=== PATIENT | male | born 1945 | race Caucasian/White ===

== ENCOUNTER 2016-05-15 19:51 | Outpatient (CLI) | payer MEDICARE, BC ==
[~2016-05-15] VITALS: Ht 172.7 cm; Wt 85.7 kg
--- NOTE | ~2016-05-15 | HEMODYNAMI ---
PATIENT:RENAE LEMONS MEDICAL RECORD: [id number] : 45 LOC[facility] [id number] ADMISSION DATE: 05/15/16 Generatedon:05/16/201616:25 Patient name: RENAE LEMONS Patient #: [id number] SSN: [id number] : 1945 Date of study: 05/16/2016 Page: Of Hemodynamic Procedure Report Patient Data Patient Demographics Procedure consent was obtained First Name: RENAE Gender: Male Last Name: CRISTO : 1945 [facility] Initial: C Age: 71 year(s) Patient #: [id number] Race: Unknown SSN: [id number] Additional ID: [id number] Contact details [address]: [address] [place] [address] State: [place] City: [place] Zip code: [address] Past Medical History Allergies Allergen Reaction Date Comments Reported Other allergy 05/16/2016 Sulfa, Doxycyline, Steroids Admission Admission Data Admission Date: 05/15/2016 Admission Time: 19:51 Room #: D.2120 Lab Results Lab Result Date: 05/16/2016 Lab Result Time: 0:00 Biochemistry Name Units Result Min Max BUN mg/dl 16 --(---*)-- 7 18 Creatinine mg/dl 1.2 --(---*)-- 0.6 1.3 CBC Name Units Result Min Max Hemoglobin g/dl 14.7 --(-*--)-- 13.5 17.5 Procedure Procedure Types Cath Procedure Diagnostic Procedure LHC LHC w/Coronaries PCI Procedure Coronary Stent Initial Miscellaneous Procedures Procedure Description Procedure Date Procedure Date: 05/16/2016 Procedure Start Time: 16:03 Procedure End Time: 16:17 Procedure Staff Name Function Gerber Huang MD Performing Physician Laureen Ho RN Nurse Raymond Adamson RT Scrub Son Roblero RT Monitor Procedure Data Cath Procedure Fluoroscopy Diagnostic fluoroscopy Total fluoroscopy Time: 2.3 time: 2.3 min min Diagnostic fluoroscopy Total fluoroscopy dose: dose: 167.34 mGy 167.34 mGy Contrast Material Contrast Material Type Amount (ml) Isovue 300 70 Entry Location Entry Primary Successful Side Size Upsize Upsize Entry Closure Succes sful Closure Location (Fr) 1 (Fr) 2 (Fr) Remarks Device Remarks Femoral Right 5 Fr 6 Fr Vascade artery Short Closure System Diagnostic catheters Device Type Used For End Catheter Placement Cordis 5Fr Pigtail LV Angiography Catheter (MP) Cordis 5Fr JL 4.0 Left Coronary Catheter (MP) Angiography Cordis 5Fr 3DRC Catheter Right Coronary (MP) Angiography Procedure Complications No complications Procedure Medications Medication Administration Route Dosage Oxygen NC 2 l/min Lidocaine 2% added to field 20 Heparin Flush Bag added to field 2 bags (1000units/500ml NS) Versed I.V. 1 mg Fentanyl I.V. 50 mcg Versed I.V. 1 mg Fentanyl I.V. 50 mcg Heparin Bolus I.V. 4000 units Versed I.V. 1 mg Fentanyl I.V. 50 mcg Hemodynamics Rest HGB: 14.7 (g/dl) Heart Rate: 74 (bpm) Snapshots Pre Cath Intra NCS Post Cath Vital Signs Time Heart Resp SPO2 NIBP (mmHg) Rhythm Pain Sedation Rate (ipm) (%) Status Level (bpm) 15:53:10 73 18 98 No Cuff NSR 0 (11) 10(A) , No pain 15:57:28 68 18 95 158/79(114) NSR 0 (11) 10(A) , No pain 16:01:42 70 17 96 143/79(111) NSR 0 (11) 10(A) , No pain 16:05:56 75 17 95 147/77(102) NSR 0 (11) 9(A) , No pain 16:10:39 73 18 93 144/88(109) NSR 0 (11) 9(A) , No pain 16:14:49 84 19 94 143/91(112) NSR 0 (11) 9(A) , No pain 16:21:42 82 16 95 153/89(119) NSR 0 (11) 10(A) , No pain Medications Time Medication Route Dose Verified Delivered Reason Notes Effectiveness by by 15:58:23 Oxygen NC 2 Gerber Garduno used for l/min Reina Ho conventions reservationist 15:58:30 Lidocaine 2% added 20ml Gerber Gerber for local to vial Reina Huang MD anesthetic field 15:58:35 Heparin Flush added 2 Gerber Gerber used for Bag to bags Reina Huang MD procedure (1000units/500ml field NS) 16:00:35 Versed I.V. 1 mg Gerber Buffie for sedation Reina Ho RN 16:00:43 Fentanyl I.V. 50 Gerber Buffie for sedation mcg Reina Ho RN 16:05:52 Versed I.V. 1 mg Gerebr Buffie for sedation Reina Ho RN 16:05:57 Fentanyl I.V. 50 Gerber Buffie for sedation mcg Reina Ho RN 16:09:52 Versed I.V. 1 mg Gerber Buffie for sedation Reina Ho RN 16:09:57 Fentanyl I.V. 50 Gerber Buffie for sedation mcg Reina Ho RN 16:11:40 Heparin Bolus I.V. 4000 Gerber Buffie for verifi ed units Reina Ho RN anticoagulation with dr huang Procedure Log Time Note 15:32:14 Procedure type changed to Cath procedure, Diagnostic procedure, LHC, LHC w/Coronaries, PCI procedure, Coronary Stent Initial, Miscellaneous Procedures 15:35:00 Raymond Adamson RT(R) sent for patient. Start room use. 15:45:06 Time tracking: Regular hours 15:45:09 Plan of Care:Hemodynamics will remain stable., Cardiac rhythm will remain stable., Comfort level will be maintained., Respiratory function will remain adequate., Patient/ family verbilizes understanding of procedure., Procedure tolerated without complication., Recovers from procedure without complications.. 15:45:14 Patient received from PCU to CCL 3 Alert and oriented. Tansferred to table in Supine position. 15:45:16 Warm blankets applied, and aayush hugger turned on for patient comfort. 15:45:16 Correct patient and procedure confirmed by team. 15:45:17 Signed procedure consent form obtained from patient. 15:45:18 ECG and BP/O2 sat monitors applied to patient. 15:45:19 Full Disclosure recording started 15:51:51 Vital chart was started 15:53:21 Baseline sample Acquired. 15:53:25 Rhythm: sinus rhythm 15:54:49 H&P Date Dictated: 05/16/2016 New H&P dictated by physician.. 15:54:50 Pre-procedure instructions explained to patient. 15:54:51 Pre-op teaching completed and patient verbalized understanding. 15:54:52 Family in waiting room. 15:54:53 Patient NPO since Midnight. 15:55:18 Patient allergic to Other allergySulfa, Doxycyline, Steroids 15:55:21 Is the patient allergic to Iodine/contrast media? No. 15:55:22 Was the patient premedicated? No 15:55:24 Is patient on blood thinner?Yes 15:55:27 ACC The patient was administered the following blood thiners within the last 24 hours: ACCPlavix 15:55:30 Patient diabetic? No. 15:55:32 If diabetic: On Metformin? No 15:55:35 Previous problem with sedation/anesthesia? No ? 15:55:37 Snore? Yes 15:55:38 Sleep apnea? Yes 15:55:39 Deviated septum? No 15:55:40 Opens mouth fully? Yes 15:55:46 Sticks out tongue? Yes 15:55:52 Airway obstruction? No ? 15:55:55 Dentures? No ? 15:55:58 Pre procedure: right dorsailis pedis pulse 1+ Palpable, but thready & weak; easily obliterated 15:56:01 Patient pain scale 0/10 ?. 15:56:09 IV patent on arrival in left antecubital with 0.9% NaCl at KVO. 15:57:04 Lab Result : Creatinine 1.2 mg/dl 15:57:04 Lab Result : BUN 16 mg/dl 15:57:04 Lab Result : Hemoglobin 14.7 g/dl 15:57:07 Lab results completed and on chart. 15:57:11 Right groin area was prepped with chlora-prep and draped in sterile fashion 15:57:12 Alarms reviewed by R. N. 15:57:12 Sharps counted by scrub and verified by R.N. 15:57:14 Physician arrived 15:57:14 --------ALL STOP TIME OUT------ 15:57:15 Final Timeout: patient, procedure, and site verified with staff and physician. All members of the team are in agreement. 15:57:17 Right groin site verified by team. 15:57:21 Physical assessment completed. ASA score P 2 - A patient with mild systemic disease as per Gerber Huang MD. 15:57:24 Sedation plan: IV Moderate Sedation Versed, Fentanyl 15:57:57 Use device set Radial Dx 15:57:59 Acist Syringe opened to sterile field. 15:58:00 Medline Cath Pack opened to sterile field. 15:58:00 Bag Decanter opened to sterile field. 15:58:01 Terumo 6Fr Slender Glidesheath opened to sterile field. 15:58:01 St Delfino 260cm J .035 wire opened to sterile field. 15:58:02 Acist Hand Control opened to sterile field. 15:58:02 Acist Manifold opened to sterile field. 15:58:02 Tegaderm 4 x 4 opened to sterile field. 15:58:23 Oxygen 2 l/min NC was given by Laureen Ho RN; used for procedure; 15:58:30 Lidocaine 2% 20ml vial added to field was given by Gerber Huang MD; for local anesthetic; 15:58:35 Heparin Flush Bag (1000units/500ml NS) 2 bags added to field was given by Gerber Huang MD; used for procedure; 16:00:35 Versed 1 mg I.V. was given by Laureen Ho RN; for sedation; 16:00:43 Fentanyl 50 mcg I.V. was given by Laureen Ho RN; for sedation; 16:03:16 Zero performed for pressure channel P1 16:03:26 Procedure started. 16:03:32 Local anesthetic to right radial artery with Lidocaine 2% by Gerber Huang MD.INITIAL ACCESS ONLY 16:04:12 Local anesthetic to right femoral artery with Lidocaine 2% by Gerber Huang MD.ADDITIONAL ACCESS 16:04:26 A 5 Fr sheath was inserted into the Right Femoral artery 16:05:52 Versed 1 mg I.V. was given by Laureen Ho RN; for sedation; 16:05:57 Fentanyl 50 mcg I.V. was given by Laureen Ho RN; for sedation; 16:07:47 Use device set Multipack Set 16:07:48 Diagnostic Infinity 5Fr Multipack catheter opened to sterile field. 16:07:53 A Cordis 5Fr Pigtail Catheter (MP) was advanced over the wire and used for LV Angiography. 16:07:56 LV angiography performed. 16:07:58 LV gram done using HAIRSTON 16:08:03 EF : 55 % 16:08:05 Catheter removed. 16:08:11 A Cordis 5Fr JL 4.0 Catheter (MP) was advanced over the wire and used for Left Coronary Angiography. 16:08:14 Catheter removed. 16:08:19 A Cordis 5Fr 3DRC Catheter (MP) was advanced over the wire and used for Right Coronary Angiography. 16:09:33 Catheter removed. 16:09:38 Davis BDNAisper J 300cm 0.014 guide wire opened to sterile field. 16:09:39 Terumo 6Fr Tyner Sheath opened to sterile field. 16:09:46 [employer] BasixCompak Inflation Kit opened to sterile field. 16:09:52 Versed 1 mg I.V. was given by Laureen Ho RN; for sedation; 16:09:57 Fentanyl 50 mcg I.V. was given by Laureen Ho RN; for sedation; 16:10:28 Sheath upsized to a 6 Fr Short. 16:10:41 ACC PCI Site: mRCA has 75% stenosis. 16:10:46 ACC Pre-intervention ANGLE Flow is 3. 16:10:56 6 Fr 3DRC guide catheter was inserted over the wire 16:11:04 Medtronic Launcher 6Fr 3DRC guide catheter opened to sterile field. 16:11:40 Heparin Bolus 4000 units I.V. was given by Laureen Ho RN; for anticoagulation; verified with dr huang 16:11:57 Guide catheter removed. 16:12:16 6 Fr 3DRC guide catheter was inserted over the wire 16:12:19 WHISPER wire advanced. 16:13:42 Inflation Number: 1 A Medtronic Integrity 2.75 X 12 stent was prepped and advanced across the Mid RCA. The stent was deployed at 13 JANEY for 0:12 (min:sec). 16:13:46 ACC Post-intervention ANGLE Flow is 3. 16:13:47 Stent catheter was removed intact over wire. 16:13:47 Wire removed. 16:13:48 Guide catheter removed. 16:13:53 Contrast amount:Isovue 300 70ml. 16:13:59 Sheath removed intact; hemostasis achieved with Vascade Closure System to the Right Femoral artery. 16:14:01 Procedure ended.(Physican Out) 16:14:26 Fluoroscopy time 02.30 minutes. 16:14:33 Fluoroscopy dose: 167.34 mGy 16:14:33 Flurop Dose total: 167.34 16:14:35 Sharps counted by scrub and verified by R.N. 16:14:35 Insertion/operative site no bleeding no hematoma. 16:14:38 Post-op/insertion site Right Femoral artery dressed using a 4 x 4 and Tegaderm. 16:14:41 Post right femoral artery:stable 16:14:42 Post Procedure Pulses reassessed and unchanged 16:14:44 Post procedure: right dorsailis pedis pulse 1+ Palpable, but thready & weak; easily obliterated. 16:14:47 Post procedure rhythm: sinus rhythm 16:14:49 Post procedure instruction explained to patient.Patient verbalizes understanding. 16:15:16 Vascade 6/7 Fr Closure Device opened to sterile field. 16:17:03 Procedure and supply charges have been captured, reviewed, submitted and are correct. 16:17:08 Procedure Complication : No complications 16:17:11 Vital chart was stopped 16:17:11 See physician's report for complete and final results. 16:17:15 Report given to PCU. 16:17:18 Patient transfered to PCU with Bed. 16:17:20 Procedure ended. 16:17:20 Full Disclosure recording stopped 16:17:23 End room use (Document Last) 16:17:40 ACC-PCI Only Patient was given prescriptions, or instructed by Gerber Huang MD to start/continue the following medications upon discharge: Plavix Intervention Summary Intervention Notes Time ActionType Lesion and Equipment Action# Pressure Duration Attributes Used 16:13:42 Place stent Mid RCA Medtronic 1 13 00:12 Integrity 2.75 X 12 stent Device Usage Item Name Manufacture Quantity Catalog Hospital Part Current Minima l Lot# / Number Charge Number Stock Stock Serial# Code Justus Jerome 1 86639 205020 707969 859311 20 Syringe Medical Systems Inc Medline Cardinal 1 [id number] 761986 06805 871195 5 Cath Pack Health Bag Microtek 1 2001S 487972 84836 273688 5 Transave Inc. Terumo 6Fr Terumo 1 [id number] 846581 401748 335796 [address]ino St Delfino 1 673618 419788 545019 830260 30 260cm J .035 wire Acist Hand Acist 1 58192 425685 604154 040281 5 Control Medical Systems Inc Acist Acist 1 38009 595974 562443 619583 5 Y'all Medical Systems Inc Tegaderm 4 3M 1 1626W 273341 981666 314285 5 x 4 Diagnostic Cardinal 1 BQ6523 950790 72843 596767 30 Infinity Health 5Fr Multipack catheter Cordis 5Fr Cardinal 1 093987 5 Pigtail Health Catheter (MP) Cordis 5Fr Cardinal 1 995644 5 JL 4.0 Health Catheter (MP) Cordis 5Fr Cardinal 1 025110 5 3DRC Health Catheter (MP) Davis Davis 1 [id number] 823148 273595 322544 5 Whisper J Vascular 300cm 0.014 guide wire Terumo 6Fr Terumo 1 [id number] 376030 580475 792620 40 Tyner Sheath Merit Merit 1 BH8138 531665 010845 118658 15 BasixComalk Medical Inflation Kit Medtronic Medtronic 1 [id number] 399050 529695 802146 1 Launcher 6Fr 3DRC guide catheter Medtronic Medtronic 1 [id number] 591322 195408 4 [id number] Integrity 2.75 X 12 stent Vascade 6/7 Cardiva 1 [id number] 648759 337901 076399 5 Fr Closure Medical, Device Inc. Signature Audit [place] Stage Time Signature Unsigned Intra-Procedure 05/16/2016 Son Roblero 4:25:17 PM RT(R) Signatures Monitor : Son Roblero RT Signature : Date : Time : [place] [id number] [place] [address]
[2016-05-15 18:15] LABS: BASOPHILS 0.2 % (0.0-2.0); EOSINOPHILS 0.1 % (0-7); HEMATOCRIT 43.2 % (42.0-54.0); HEMOGLOBIN 14.7 g/dL (13.5-17.5); IMMATURE GRANULOCYTES 0.2 % (0-5); LYMPHOCYTES 17.7 % (15-50); MCH 29.3 pg (26.0-34.0); MCV 86.1 fL (80.0-100.0); MEAN PLATELET VOLUME 9.4 fL (7.4-10.4); MONOCYTES 9.3 % (2-11); NEUTROPHILS 72.5 % (40-80); PLATELET COUNT 215 10x3/uL (130-400); RBC 5.02 10x6/uL (4.20-6.10); RDW 13.4 % (11.5-14.5); WBC 8.7 10x3/uL (4.8-10.8)
[2016-05-15 19:02] LABS: ALBUMIN 3.6 g/dL (3.4-5.0); ALKALINE PHOSPHATASE 75 U/L (46-116); ALT (SGPT) 40 U/L (10-68); CALCIUM 9.4 mg/dL (8.5-10.1); CHLORIDE - SERUM 102 mmol/L (98-107); CREATININE - SERUM 1.2 mg/dL (0.6-1.3); GLUCOSE 118 mg/dL (74-106); POTASSIUM - SERUM 3.3 mmol/L (3.5-5.1); PROTEIN - SERUM 7.5 g/dL (6.4-8.2); UREA NITROGEN 16 mg/dL (7-18); eGFR NON AFRICAN AMERICAN 63 mL/min (90-120)
[2016-05-15 19:16] LABS: CKMB 0.6 U/L (0.0-3.6); CREATINE KINASE 61 UL (21-232)
[2016-05-15 19:20] LABS: CALC OSMOLALITY 280 mosm/kg (275-300); SODIUM 140 mmol/L (136-145); TROPONIN-I < 0.017 ng/mL (0.000-0.060)
[~2016-05-15 19:51] MED LIST: CARAFATE1 G PO; CARDIZEM60 MG PO; DEMEROL50 MG PO; FISH OIL 1,2001 CA1 PO; IMITREX50 MG PO; MAXZIDE-25 MG T1 TAB PO; MELATONIN 10 M1 EACH PO; NITROSTAT0.4 MG SL; NORCO 10/325 TA1 TA1 PO; PRILOSEC20 MG PO; ROBAXIN-750750 MG PO; TENORMIN50 MG PO; TYLENOL PM1 TAB PO
--- NOTE | 2016-05-15 21:15 | NUR ---
RECEIVED PT TO ROOM 2119 ALERT O X3. FAMILY WITH PT. ORIENTED TO ROOM AND CALL LIGHT. PT VOICES NO C/O CP OR SOB AT THIS TIME. GIVEN AND SANDWICH TRAY AND DRINK. DISCUSSED PLAN OF CARE AND NPO AFTER MN FOR POSS CATH IN AM.
[2016-05-15 21:29] VITALS: BP 132/85; Ht 172.7 cm; Wt 85.7 kg
[2016-05-15] MEDS ORDERED: CARDIZEM60 MG PO (22:22)
[2016-05-15] MEDS ORDERED: NIASPAN500 MG PO (22:23)
[2016-05-15] MEDS ORDERED: BACLOFEN10 MG PO (22:23)
[2016-05-16] VITALS: BP 132/85
--- NOTE | 2016-05-16 00:30 | NUR ---
RN SHIFT MGR AT BEDSIDE FOR VS. NEEDS ADDRESSED. CALL LIGHT IN REACH. WILL CONT TO MONITOR.
[2016-05-16 02:28] LABS: CKMB 0.7 U/L (0.0-3.6); CREATINE KINASE 57 UL (21-232)
[2016-05-16 02:36] LABS: TROPONIN-I < 0.017 ng/mL (0.000-0.060)
--- NOTE | 2016-05-16 02:58 | NUR ---
RESTING WELL WITH EYES CLOSED, NO DISTRESS NOTED. CONT TO MONITOR.
--- NOTE | 2016-05-16 07:34 | NUR ---
ASSESSMENT COMPLETED. DENIES ANY PAIN AT PRESENT TIME.TELEMERTY SHOWS SR AT 62. SL TO LEFT AC. O2 AT 2 L/M PER MC. NPO FOR POSSIBLE CATH. WILL MONITOR
[2016-05-16 07:53] VITALS: BP 149/80
[2016-05-16 08:18] LABS: CKMB 0.7 U/L (0.0-3.6); CREATINE KINASE 59 UL (21-232)
[2016-05-16 08:19] LABS: TROPONIN-I < 0.017 ng/mL (0.000-0.060)
[2016-05-16 11:44] VITALS: BP 141/83
--- NOTE | 2016-05-16 12:35 | NUR ---
HOB UP EATING LUNCH. TELEMERTY SHOWS SR. DENIES ANY NEEDS. SR UP WITH CALL LIGHT IN REACH .
[2016-05-16 15:24] VITALS: BP 145/82
--- NOTE | 2016-05-16 15:44 | NUR ---
TO ETCHER APPRENTICE PER BED
--- NOTE | 2016-05-16 16:15 | NUR ---
BACK FROM PORT PATROL OFFICER. RIGHT GROIN SOFT WITH DRSG DRY AND INTACT. V/S STABLE. PPP. TELEMERTY SHOWS SR. FAMILY AT BEDSIDE. WILL MONITOR
[2016-05-16] MEDS ORDERED: PLAVIX75 MG PO (16:48)
[2016-05-16] MEDS ORDERED: ASPIRIN81 MG PO (16:50)
--- NOTE | 2016-05-16 18:22 | NUR ---
LYING QUIETLY. RIGHT GROIN SOFT WITH DRSG DRY AND INTACT. V/S STABLE TELEMERTY SHOWS SR
--- NOTE | 2016-05-16 19:20 | NUR ---
LYING IN BED RESTING WELL WITH AT BEDSIDE. RIGHT GROIN STABLE. VSS. DISCUSSED DISCHARGE INSTRUCTIONS. PT AND VERBALIZE UNDERSTANDING. SCRIPT GIVEN FOR PLAVIX WRITTEN BY DR BLANCO.
--- NOTE | 2016-05-16 20:00 | NUR ---
IVSL REMOVED FROM LEFT FA, CATH TIP INTACT. TELE REMOVED AND RETURNED TO SALES AGENT [employer]. RIGHT GROIN STABLE.
--- NOTE | 2016-05-16 20:30 | NUR ---
TAKEN DOWNSTAIRS VIA WC.
--- NOTE | 2016-05-19 08:47 | OP ---
PATIENT NAME: RENAE LEMONS MEDICAL RECORD: [id number] :45 LOCATION:D.M2 D.0 ADMISSION DATE:05/15/16 SURGEON: CAIN BLANCO MD DATE OF OPERATION: PROCEDURES: 1. PTCA stent to RCA. 2. Left heart catheterization. 3. Selective coronary angiography. 4. Left ventriculogram. INDICATION: Unstable angina. PROCEDURE IN DETAIL: After informed consent was obtained and after detailed explanation of risks, benefits as well as alternative therapies, the patient elected to proceed with angiogram and angioplasty. The right femoral area was prepped and draped in normal sterile fashion. Right femoral artery was cannulated via modified Seldinger technique with placement of 6-Maltese sheath. All catheters exchanged through this sheath. At the end of the case, all catheters were removed, sheaths were also removed. Hemostasis was obtained via best VASCADE and direct compression. The patient tolerated procedure well with no complication, returned back to the room in stable hemodynamic condition. FINDINGS: The left ventriculogram was performed in the standard 30-degree HAIRSTON view reveals good cardiac wall motion throughout all segments. Overall ejection fraction estimated at 60%. SELECTIVE CORONARY ANGIOGRAPHY: 1. Left main showed no significant angiographic disease. 2. Left anterior descending has moderate irregularities, but no flow-limiting stenosis. 3. The left circumflex has moderate irregularities, but no flow-limiting stenosis. 4. Right coronary has 70% to 75% stenosis in the mid vessel. PTCA STENT OF THE RIGHT CORONARY: The stent used was a 2.75 x 12 mm Integrity. Result was 0% residual stenosis. No angiographic evidence of dissection or thrombus with jainism of ANGLE-3 flow. IMPRESSION: Successful percutaneous transluminal coronary angioplasty stent of the right coronary artery going from 70% to 75% initial stenosis to 0% residual. TRANSINT:[id number] Voice Confirmation ID: [id number] DOCUMENT ID: [id number] CAIN BLANCO MD at 0847 CC: [id number] DICTATION DATE: 05/16/16 1619 PARKING METER COLLECTOR: 05/17/16 0018 DIS IN 05/16/16 [facility] [address] [place] [id number]
--- NOTE | 2016-05-19 08:47 | HP ---
PATIENT: RENAE PALACIOS MEDICAL RECORD: [id number] ACCOUNT: [id number] LOCATION:[address] : 45 ADMISSION DATE: 05/15/16 HISTORY AND PHYSICAL EXAMINATION DIAGNOSES: 1. Unstable angina. 2. Abnormal nuclear stress test. 3. Hypertension. 4. Hyperlipidemia. HISTORY OF PRESENT ILLNESS: Mr. Palacois has been having anginal symptomatology. He underwent stress testing in our office revealing significant ischemia. He was set for cardiac catheterization yesterday; however, the chest pain worsened. His troponin is negative. His EKG is with nonspecific ST-T abnormalities, but he continues to have the anginal chest discomfort. PHYSICAL EXAMINATION: GENERAL APPEARANCE: Well-nourished, well-developed, appears stated age. Level of distress, comfortable. PSYCHIATRIC: Mental status, alert, normal affect. Orientation, oriented to time, place and person. EYES: Lids and conjunctiva, noninjected. No discharge, no pallor. ENT: Lips, teeth, gums, normal dentition. Oropharynx, no cyanosis, no pallor. NECK: Carotid arteries, bilateral normal upstroke, no bruits, no thrills. JUGULAR VEINS: No jugular venous pressure or distention. CERVICAL LYMPH NODES: Nontender, nonenlarged. THYROID: Not enlarged. Nontender. No nodules. LUNGS: Respiratory effort, unlabored. CHEST: Normal curvature. No thoracic deformity. No chest wall tenderness. Percussion, resonant. Auscultation, clear. No wheezes, no rales, no rhonchi. CARDIOVASCULAR: Precordial exam, nondisplaced. No heaves or pericardial thrills. Rate and rhythm, regular. Heart sounds, normal S1, normal S2. No S3, no gallop, no rub. Systolic murmur, not heard. Diastolic murmur, not heard. EXTREMITIES: No cyanosis, no edema. Peripheral pulses, full and equal in all extremities, except as noted. No bruits appreciated. ABDOMEN: Soft, nondistended. Normal aorta. No bruit. Nontender. No masses. Liver, nontender, no hepatomegaly. Spleen, nontender, no splenomegaly. MUSCULOSKELETAL: No joint tenderness. No joint swelling. No erythema. NEUROLOGICAL: Normal gait, normal strength, normal tone. SKIN: Warm and dry. REVIEW OF SYSTEMS: The patient reports easy bruising but reports no swollen glands. The patient reports no fever, no night sweats, no significant weight gain, no significant weight loss. No significant exercise tolerance. The patient reports no dry eyes, no irritation, no vision change. Patient reports no difficulty hearing and no ear pain. Patient reports no frequent nose bleeds or nose and sinus problems. Patient reports on arm pain on exertion. No shortness of breath while lying down. No history of heart murmur. Patient reports no cough, no wheezing or coughing up blood. Patient reports no abdominal pain, no vomiting. Normal appetite. No diarrhea and not vomiting blood. No nausea and no constipation. Patient reports no incontinence. No difficulty urinating. No hematuria. No increased frequency. Patient reports no muscle aches. No weakness, no arthralgias, no back pain. No swelling of the extremities. Patient reports no abnormal mole, no jaundice, no rashes. Reports HISTORY AND PHYSICAL [id number] RENAE PALACIOS no loss of consciousness. No weakness and no numbness. No seizures, dizziness, or headaches. The patient reports no depression, no sleep disturbance, feeling safe in a relationship and no alcohol abuse. Patient reports on fatigue. Reports no runny nose or sinus pressure. No itching, no hives, and no frequent sneezing. OVERALL IMPRESSION: Unstable angina, escalating fashion with abnormal nuclear stress test, most likely has hemodynamically significant coronary artery disease. We will proceed with coronary angiography. Further care depends upon findings of the angiography. TRANSINT:[id number] Voice Confirmation ID: [id number] DOCUMENT ID: [id number] CAIN BLANCO MD at 0847 CC: [id number] DICTATION DATE: 05/16/16 1113 CNC MILL SET UP OPERATOR: 05/16/16 1148 DIS IN 05/16/16 [facility] [address] [place] [address]
--- NOTE | 2016-05-19 08:47 | DS ---
PATIENT:RENAE LEMONS :45 MEDICAL RECORD: [id number] DISCHARGE SUMMARY ADMISSION DATE: 05/15/16 DISCHARGE DATE: 05/16/16 DIAGNOSES: 1. Unstable angina. 2. Coronary artery disease. 3. Percutaneous transluminal coronary angioplasty stent right coronary artery this admission. HOSPITAL COURSE: This is a gentleman who presents with unstable anginal symptomatology, found to have significant disease of the RCA, underwent successful PTCA stent of the RCA, had an uneventful postop course. He was discharged home with the addition of aspirin and Plavix to his medical regimen. He will follow up with [facility] in 1 month. TRANSINT:[id number] Voice Confirmation ID: [id number] DOCUMENT ID: [id number] CAIN BLANCO MD at 0847 CC: [id number] DICTATION DATE: 05/16/16 1617 FOREMAN SHIPPING DEPARTMENT: 05/17/16 0144 DIS IN 05/16/16 [address] [place] [address]
== END 2016-05-16 20:30 | disposition home or self-care (01) ==
LOC: OBSVTIME → D.ER 19:51 → D.M2 19:51 → D.CATH 19:51 → EDSTATUS 05-16 12:45 → D.M2 05-16 20:30 → D.CATH 05-16 20:30 → D.M2 05-16 20:30
PROVIDERS: Emergency Medicine; Emergency Medicine Emergency Medical Services
DX: I25.110 Atherosclerotic heart disease of native coronary artery with unstable angina pectoris (principal); E78.5 Hyperlipidemia, unspecified; I10 Essential (primary) hypertension

== ENCOUNTER 2016-08-15 10:48 | Outpatient (CLI) | payer MEDICARE, BC ==
[~2016-08-15] VITALS: Ht 172.7 cm; Wt 86.4 kg
--- NOTE | ~2016-08-15 | OP ---
PATIENT NAME: RENAE LEMONS MEDICAL RECORD: [id number] :45 LOCATION:D.M2 D.2119 ADMISSION DATE: SURGEON: CY RIVERA MD DATE OF OPERATION: 08/15/2016 PREOPERATIVE DIAGNOSES: 1. Sick sinus syndrome. 2. Bradycardia. 3. Hypertension. POSTOPERATIVE DIAGNOSES: 1. Sick sinus syndrome. 2. Bradycardia. 3. Hypertension. PROCEDURE: 1. Left subclavian vein dual lumen pacemaker placement. 2. Fluoroscopic interpretation. SURGEON: Cy Rivera MD. CO-SURGEON: Vasquez Mcfarlane MD. REPORT OF OPERATION: The patient's left chest was prepped and draped in sterile fashion. A 30 mL of 1% lidocaine with epinephrine was infused into the surrounding tissues. A skin incision was made over the left lateral superior chest and a subcutaneous pouch was made overlying the pectoral fascia. A needle was used to cannulate the left subclavian vein. The guidewire was advanced with ease. This was performed with 2 separate times. Fluoro was used to note that the wires were in good position in the venous system. At this point, the dilator trocar device was replaced over the wire and the wires and dilators were removed. The leads were advanced through the trocars and at this point, Dr. Mcfarlane came in and positioned the leads appropriately in the atrium and the ventricle. Once there are noted to be in good position and functioning appropriately, then they were attached to the pacemaker generator. The leads were then sutured into place with 0 Ti-Cron and the generator was positioned in the subcutaneous pouch and sutured to the pectoral fascia using interrupted 0 Ti-Cron. The subcutaneous tissues were irrigated out with antibiotic solution. The subcutaneous tissues were then reapproximated with interrupted 3-0 Vicryl. The skin was then closed with running subcutaneous 5-0 Monocryl and dressed appropriately. COMPLICATIONS: None. CONDITION: Stable. ANESTHESIA: Local MAC. BLOOD LOSS: Minimal. TRANSINT:[id number] Voice Confirmation ID: [id number] DOCUMENT ID: [id number] OPERATIVE REPORT [id number] RENAE LEMONS CY RIVERA MD CC: [id number] DICTATION DATE: 08/15/16 141 SUPPRESSION CREW LEADER: 08/15/16 2350 [address] [facility] [address] [place] [address]
--- NOTE | ~2016-08-15 | HEMODYNAMI ---
PATIENT:RENAE LEMONS MEDICAL RECORD: [id number] : 45 LOCATION:DDonnaCAT ADMISSION DATE: 08/15/16 Generatedon:08/15/201614:05 Patient name: RENAE LEMONS Patient #: [id number] SSN: [id number] : 1945 Date of study: 08/15/2016 Page: Of Hemodynamic Procedure Report Patient Data Patient Demographics Procedure consent was obtained First Name: RENAE Gender: Male Last Name: CRISTO : 1945 [facility] Initial: C Age: 71 year(s) Patient #: [id number] Race: Unknown SSN: [id number] Additional ID: [id number] Contact details [address]: [address] [place] [address] State: [place] City: [place] Zip code: [address] Past Medical History Allergies Allergen Reaction Date Comments Reported Other allergy 05/16/2016 Sulfa, Doxycyline, Steroids Other allergy 08/15/2016 doxycycline, medrol Admission Admission Data Admission Date: 08/15/2016 Admission Time: 10:48 Lab Results Lab Result Date: 08/15/2016 Lab Result Time: 0:00 Biochemistry Name Units Result Min Max BUN mg/dl 18 --(---*)-- 7 18 Creatinine mg/dl 1 --(--*-)-- 0.6 1.3 CBC Name Units Result Min Max Hemoglobin g/dl 14.2 --(*---)-- 13.5 17.5 Coagulation Name Units Result Min Max INR units 0.97 --(-*--)-- 0.85 1.17 PT sec 12.7 --(-*--)-- 11.6 15 Procedure Procedure Types Cath Procedure Diagnostic Procedure PPM/ICD PPM Dual Implant Miscellaneous Procedures Moderate Sedation up to 45 minutes Procedure Description Procedure Date Procedure Date: 08/15/2016 Procedure Start Time: 13:26 Procedure End Time: 14:04 Procedure Staff Name Function Vasquez Mcfarlane MD Performing Physician Cody Masters MD Performing Physician Raymond Adamson RT Scrub Shana Salcedo RN Nurse Son Roblero RT Monitor Procedure Data Cath Procedure Fluoroscopy Diagnostic fluoroscopy Total fluoroscopy Time: 1.6 time: 1.6 min min Diagnostic fluoroscopy Total fluoroscopy dose: dose: 45.75 mGy 45.75 mGy Procedure Complications No complications Procedure Medications Medication Administration Route Dosage Bupivacaine 0.5% 20 ml Lidocaine 1% with added to field 20 ml Epi Ancef Irrigation added to field 1 g (1gm/500ml NS) Ancef (1Gm/50ml NS) I.V.P.B 1 g Versed I.V. 1 mg Fentanyl I.V. 50 mcg Fentanyl I.V. 25 mcg Versed I.V. 0.5 mg Fentanyl I.V. 25 mcg Versed I.V. 0.5 mg Hemodynamics Rest HGB: 14.2 (g/dl) Heart Rate: 42 (bpm) Snapshots Pre Cath Intra NCS Post Cath Vital Signs Time Heart Resp SPO2 NIBP (mmHg) Rhythm Pain Sedation Rate (ipm) (%) Status Level (bpm) 12:56:51 41 20 99 148/70(110) SB 0 (11) 10(A) , No pain 13:01:17 41 20 99 154/73(99) SB 0 (11) 10(A) , No pain 13:05:42 43 19 99 155/69(109) SB 0 (11) 10(A) , No pain 13:10:12 45 16 98 149/70(110) SB 0 (11) 10(A) , No pain 13:14:40 44 14 99 156/71(107) SB 0 (11) 10(A) , No pain 13:19:02 45 14 96 157/73(111) SB 0 (11) 10(A) , No pain 13:23:12 46 16 97 125/70(95) SB 0 (11) 10(A) , No pain 13:27:31 42 16 98 141/69(105) SB 0 (11) 10(A) , No pain 13:32:29 54 15 98 Measuring SB 0 (11) 10(A) , No pain 13:32:40 53 16 97 144/78(97) SB 0 (11) 10(A) , No pain 13:37:10 52 14 97 163/52(98) SB 0 (11) 10(A) , No pain 13:41:34 48 16 96 134/75(96) SB 0 (11) 10(A) , No pain 13:45:46 45 19 96 123/71(101) SB 0 (11) 10(A) , No pain 13:50:46 44 17 95 Measuring SB 0 (11) 10(A) , No pain 13:50:58 45 15 96 131/71(114) SB 0 (11) 10(A) , No pain 13:55:16 58 16 96 142/75(107) SB 0 (11) 10(A) , No pain 14:00:15 60 16 95 Measuring SB 0 (11) 10(A) , No pain 14:01:35 59 16 96 106/71(88) SB 0 (11) 10(A) , No pain Medications Time Medication Route Dose Verified Delivered Reason Notes Effectiv eness by by 13:03:51 Bupivacaine ADDED 20 ml Cheondoism Cheondoism used for 0.5% TO Guerrero Masters MD procedure FIELD 13:04:00 Lidocaine added 20 ml Cheondoism Cheondoism used for 1% with Epi to Guerrero Masters MD procedure field 13:04:14 Ancef added 1 g Cheondoism Cheondoism used for Irrigation to Guerrero Masters MD procedure (1gm/500ml field NS) 13:15:46 Ancef I.V.P.B 1 g Cheondoism Shana Per (1Gm/50ml Guerrero Salcedo RN physician NS) 13:25:30 Versed I.V. 1 mg [address]ana for [facility] Liam Salcedo RN sedation 13:26:03 Fentanyl I.V. 50 Vasquez Shana for mcg MaeveLiam Salcedo RN sedation 13:30:03 Fentanyl I.V. 25 Vasquez Shana for mcg [facility] Liam Salcedo RN sedation 13:32:09 Versed I.V. 0.5 Vasquez Shana for mg MaeveLiam Salcedo RN sedation 13:41:06 Fentanyl I.V. 25 Vasquez Shana for mcg [facility] Liam Salcedo RN sedation 13:41:10 Versed I.V. 0.5 Vasquez Shana for mg [facility]. Liam Salcedo RN sedation Procedure Log Time Note 12:25:57 Son Roblero RT(R) sent for patient. Start room use. 12:26:23 Time tracking: Regular hours 12:26:27 Plan of Care:Hemodynamics will remain stable., Cardiac rhythm will remain stable., Comfort level will be maintained., Respiratory function will remain adequate., Patient/ family verbilizes understanding of procedure., Procedure tolerated without complication., Recovers from procedure without complications.. 12:45:36 Patient received from Pre/Post Procedure Room to CCL 3 Alert and oriented. Tansferred to table in Supine position. 12:45:38 Warm blankets applied, and aayush hugger turned on for patient comfort. 12:45:38 Correct patient and procedure confirmed by team. 12:45:39 Signed procedure consent form obtained from patient. 12:45:40 ECG and BP/O2 sat monitors applied to patient. 12:55:37 Vital chart was started 13:00:54 Baseline sample Acquired. 13:00:58 Rhythm: sinus bradycardia 13:00:59 Full Disclosure recording started 13:01:09 H&P Date Dictated: 08/08/2016 Within 30 days and on chart., H&P Addendum completed by physician on day of procedure. (MUST COMPLETE FOR ALL OUTPATIENTS). 13:01:10 Pre-procedure instructions explained to patient. 13:01:11 Pre-op teaching completed and patient verbalized understanding. 13:01:13 Family in patients room. 13:01:14 Patient NPO since Midnight. 13:01:38 Patient allergic to Other allergydoxycycline, medrol 13:01:40 Is the patient allergic to Iodine/contrast media? No. 13:01:45 Is patient on blood thinner?No 13:02:02 Patient diabetic? No. 13:02:04 ----Pre-sedation anethsthesia assessment.---- 13:02:06 Previous problem with sedation/anesthesia? No ? 13:02:07 Snore? Yes 13:02:08 Sleep apnea? Yes 13:02:09 Deviated septum? No 13:02:10 Opens mouth fully? Yes 13:02:11 Sticks out tongue? Yes 13:02:13 Airway obstruction? No ? 13:02:15 Dentures? No ? 13:02:20 Patient pain scale 0/10 ?. 13:02:34 IV patent on arrival in left antecubital with 0.9% NaCl at 10ml/hr. 13:03:51 Bupivacaine 0.5% 20 ml ADDED TO FIELD was administered by Cody Masters MD; used for procedure; 13:04:00 Lidocaine 1% with Epi 20 ml added to field was administered by Cody Masters MD; used for procedure; 13:04:14 Ancef Irrigation (1gm/500ml NS) 1 g added to field was administered by Cody Masters MD; used for procedure; 13:05:21 Lab results completed and on chart. 13::55 Lab Result : BUN 18 mg/dl 13::55 Lab Result : Creatinine 1 mg/dl 13::55 Lab Result : Hemoglobin 14.2 g/dl 13:: Lab Result : PT 12.7 sec 13:: Lab Result : INR 0.97 units 13:06:02 Left chest area was prepped with chlora-prep and draped in sterile fashion 13:06:02 Alarms reviewed by R. N. 13:06:02 Sharps counted by scrub and verified by R.N. 13:07:17 Medtronic Adapta PPM Dual Generator opened to sterile field. 13:07:25 Medtronic 4074-52 PPM Lead opened to sterile field. 13:07:34 Medtronic 4574-45 PPM Lead opened to sterile field. 13:12:34 Use device set Pacemaker Set 13:12:35 Mepilex Dressing opened to sterile field. 13:12:35 2.0 Ticron Multipack opened to sterile field. 13:12:35 3.0 Vicryl Multipack [id number] opened to sterile field. 13:12:44 5.0 Monocryl PS2 [id number] opened to sterile field. 13:12:46 Immobilizer Large opened to sterile field. 13:15:40 Physician paged 13:15:46 Ancef (1Gm/50ml NS) 1 g I.V.P.B was administered by Shana Salcedo RN; Per physician; 13:25:26 --------ALL STOP TIME OUT------ 13:25:27 Final Timeout: patient, procedure, and site verified with staff and physician. All members of the team are in agreement. 13:25:29 Left chest site verified by team. 13:25:30 Versed 1 mg I.V. was administered by Shana Salcedo RN; for sedation; 13:25:35 Physical assessment completed. ASA score P 2 - A patient with mild systemic disease as per Cody Masters MD. 13:25:39 Sedation plan: IV Moderate Sedation Versed, Fentanyl 13:25:58 Procedure started. 13:26:03 Fentanyl 50 mcg I.V. was administered by Shana Salcedo RN; for sedation; 13:26:14 Local anesthetic to Chest area with Lidocaine 1% w/epi by Cody Masters MD.INITIAL ACCESS ONLY 13:26:24 Medtronic unit support representative LUNA LLOYD present for procedure. 13:26:50 Pre sharps counted by scrub and verified by RN: Sutures: 14 Sponges: 5 Stick needles: 2 Skin needles: 2 Blade: 1 Cautery: 1 13:26:53 Grounding pad site Left thigh. 13:26:55 Grounding pad site free from injury. 13:27:01 Lidocaine 1% w/epi to left subclavicular area by Cody Masters MD. 13:27:03 Incision made to left subclavicular area. 13:27:05 Generator pocket made/opened. 13:30:03 Fentanyl 25 mcg I.V. was administered by Shana Salcedo RN; for sedation; 13:31:44 Procedure type changed to Cath procedure, Diagnostic procedure, PPM/ICD, PPM Dual Implant, Miscellaneous Procedures, Moderate Sedation up to 45 minutes 13:32:04 Left subclavian vein accessed with 7Fr Safe Sheath. 13:32:09 Versed 0.5 mg I.V. was administered by Shana Salcedo RN; for sedation; 13:34:38 Right subclavian vein accessed with 7Fr Safe Sheath. 13:36:02 Ventricular lead inserted and advanced. 13:36:56 Atrial lead inserted and advanced. 13:41:06 Fentanyl 25 mcg I.V. was administered by Shana Salcedo RN; for sedation; 13:41:10 Versed 0.5 mg I.V. was administered by Shana Salcedo RN; for sedation; 13:46:29 Ventricular lead positioned. 13:46:34 Ventricular lead tested. 13:46:36 Atrial lead positioned. 13:46:40 Atrial lead tested. 13:46:41 Peel-a-way sheath was split and removed. 13:47:05 Ventricular lead attachment was completed with 2-0 vicryl. 13:47:15 Atrial lead attachment was completed with 2-0 vicryl. 13:47:45 Device pocket was irrigated with Ancef. 13:47:57 PPM Dual was attached to lead(s) and inserted into pocket. 13:48:10 PPM Dual was inserted subcutaneously to left chest. 13:48:15 Generator was sutured in place with 2-0 vicryl. 13:54:25 Generator was sutured in place with 3-0 vicryl. 13:54:33 Skin closure was completed with 5-0 monocryl. 13:55:19 Parameters-- Generator: Mode: DUEL. Lower Rate: 60bpm. Upper Rate: 130bpm. 13:56:25 Parameters--Ventricular P/R Wave: 19.5mV. Current: 0.1mA; Threshold: 0.2V; Impedence: 1173OHMS. 13:57:19 Parameters--Atrial P/R Wave: 4.5mV. Current: 0.1mA; Threshold: 0.3V; Impedence: 789OHMS. 14:00:30 Lt Chest incision was dressed with Mepilex dressing. 14:00:33 Procedure ended.(Physican Out) 14:00:40 Fluoroscopy time 01.60 minutes. 14:00:49 Fluoroscopy dose: 45.75 mGy 14:00:49 Flurop Dose total: 45.75 14:01:15 Sharps counted by scrub and verified by R.N. 14:01:23 Post-op/insertion site Left Chest area dressed using a Mepilex dressing. 14:01:33 Post Chest area:stable 14:01:34 Post Procedure Pulses reassessed and unchanged 14:01:42 Post procedure rhythm: sinus rhythm 14:01:44 Post procedure instruction explained to patient.Patient verbalizes understanding. 14:03:49 Procedure and supply charges have been captured, reviewed, submitted and are correct. 14:04:43 Procedure Complication : No complications 14:04:51 Vital chart was stopped 14:04:52 See physician's report for complete and final results. 14:04:54 Report given to PCU. 14:04:57 Patient transfered to PCU with Bed. 14:04:59 Procedure ended. 14:04:59 Full Disclosure recording stopped 14:05:02 End room use (Document Last) Device Usage Item Name Manufacture Quantity Catalog Hospital Part Current Minimal Lot# / Number Charge Number Stock Stock Serial# Code Medtronic Medtronic 1 [id number] EXP:11-20-17 Adapta PPM SN: Dual [id number] Generator Medtronic Medtronic 1 4074-52 [id number] 054832 5 4074-52 PPM Lead Medtronic Medtronic 1 4574-45 [id number] 995340 5 4574-45 PPM Lead Mepilex Cardinal 1 399255 320228 069142 [id number] 5 Dressing Health 2.0 Ticron Ethicon 9 [id number] 363959 24643 340476 5 Multipack 3.0 Vicryl Ethicon 1 [id number] 980844 538572 5 Multipack [id number] 5.0 Ethicon 1 Y495G 600135 808469 676027 5 Monocryl PS2 Y495G Immobilizer Cardinal 1 [id number] 281183 [id number] 400984 5 Large Health Signature Audit [place] Stage Time Signature Unsigned Intra-Procedure 08/15/2016 Son Roblero 2:05:19 PM RT(R) Signatures Monitor : Son Roblero RT Signature : Date : Time : [address] [address]
[~2016-08-15 10:48] MED LIST changes: +ASPIRIN81 MG PO; +BACLOFEN10 MG PO; +NIASPAN500 MG PO; +PLAVIX75 MG PO
[2016-08-15 12:08] LABS: HEMOGLOBIN 14.2 g/dL (13.5-17.5); MCH 29.6 pg (26.0-34.0); MCHC 33.8 g/dL (31.0-37.0); MCV 87.5 fL (80.0-100.0); MEAN PLATELET VOLUME 9.2 fL (7.4-10.4); RBC 4.8 10x6/uL (4.20-6.10); RDW 13.2 % (11.5-14.5); WBC 7.3 10x3/uL (4.8-10.8)
[2016-08-15] MEDS ORDERED: CARAFATE1 G PO (12:19)
[2016-08-15] MEDS ORDERED: BETAPACE 80 MG80 MG PO (12:19)
[2016-08-15 12:26] LABS: APTT 23.4 SECONDS (22.8-39.4); INR 0.97 (0.85-1.17); PROTIME 12.7 SECONDS (11.6-15.0)
[2016-08-15 12:27] VITALS: BP 122/71; BMI 28.9
[2016-08-15 12:39] LABS: CALC OSMOLALITY 284 mosm/kg (275-300); CALCIUM 9.2 mg/dL (8.5-10.1); CARBON DIOXIDE 25.2 mmol/L (21.0-32.0); CHLORIDE - SERUM 104 mmol/L (98-107); GLUCOSE 105 mg/dL (74-106); POTASSIUM - SERUM 3.8 mmol/L (3.5-5.1); SODIUM 142 mmol/L (136-145); UREA NITROGEN 18 mg/dL (7-18); eGFR NON AFRICAN AMERICAN 78 mL/min (90-120)
[2016-08-15 14:37] VITALS: BP 119/82; Ht 172.7 cm; Wt 86.4 kg
--- NOTE | 2016-08-15 14:37 | NUR ---
TRANSFERED FROM CEMENT CRUSHER OPERATOR. VS WNL. LEFT CHEST DRSG CLEAN AND DRY. LEFT ARM IN SLING. WILL CONT. PLAN OF CARE.
[2016-08-15 15:53] VITALS: BP 140/74
[2016-08-15 21:07] VITALS: BP 132/83
[2016-08-16 01:38] VITALS: BP 110/71
[2016-08-16 05:32] VITALS: BP 113/72
[2016-08-16 08:00] VITALS: BP 137/78
--- NOTE | 2016-08-16 09:58 | NUR ---
IV AND TELEMETRY DCD. DC PLANS GIVEN. UNDERSTANDING VOICED. ESCORTED TO CAR BY W/C.
--- NOTE | 2016-08-17 12:52 | OP ---
PATIENT NAME: RENAE PALACIOS MEDICAL RECORD: [id number] :45 LOCATION:D.CAT ADMISSION DATE: SURGEON: ELENA MATTHEW MD DATE OF OPERATION: 08/15/2016 PROCEDURE: Lead portion of permanent pacemaker placement. INDICATION: Sick sinus syndrome, yann escape rhythms. SURGEON: Cody Masters MD. DESCRIPTION OF PROCEDURE: After left subclavian was cannulated via Seldinger technique via Dr. Masters, first under fluoroscopic guidance, I the placed RV lead in RV apex without difficulty. After adequate thresholds and R waves were obtained, under fluoroscopic guidance, again, I placed the right atrial lead in the right atrial appendage without difficulty. After adequate P waves and thresholds were again obtained, the leads were attached to appropriate poles of the generator. Pocket was closed via Dr. Masters. IMPRESSION: Successful lead portion of permanent pacemaker placement on Renae Palacios. COMPLICATIONS: None. ESTIMATED BLOOD LOSS: Minimal. DISPOSITION: To the floor, stable. TRANSINT:[id number] Voice Confirmation ID: [id number] DOCUMENT ID: [id number] ELENA MATTHEW MD at 1252 CC: [id number] DICTATION DATE: 08/15/16 1359 TYPESETTER APPRENTICE: 08/15/16 2345 [facility] CLI 08/16/16 [id number] [place] [address]
== END 2016-08-16 09:59 | disposition home or self-care (01) ==
LOC: D.CATH 10:48 → D.M2 14:22 → D.CATH 08-16 09:59
PROVIDERS: Internal Medicine Interventional Cardiology
DX: I49.5 Sick sinus syndrome (principal); I10 Essential (primary) hypertension

== ENCOUNTER → 2017-07-06 12:19 | Outpatient (CLI) | payer MEDICARE, OTHER ==
[2016-08-15 14:37] VITALS: BMI 28.9
[~2017-07-06 12:19] MED LIST changes: +BETAPACE 80 MG80 MG PO
== END | disposition home or self-care (01) ==
LOC: D.LABREF 12:19
DX: B95.8 Unspecified staphylococcus as the cause of diseases classified elsewhere (principal)

== ENCOUNTER 2017-09-17 08:11 | Outpatient (CLI) | payer MEDICARE, OTHER ==
[~2017-09-17] VITALS: Ht 172.7 cm; Wt 79.5 kg
--- NOTE | ~2017-09-17 | HEMODYNAMI ---
PATIENT:RENAE LEMONS MEDICAL RECORD: [id number] : 45 LOCATION:D[facility] ADMISSION DATE: 09/17/17 Generatedon:09/17/201711:10 Patient name: RENAE LEMONS Patient #: [id number] SSN: [id number] : 1945 Date of study: 09/17/2017 Page: Of Hemodynamic Procedure Report Patient Data Patient Demographics Procedure consent was obtained First Name: RENAE Gender: Male Last Name: CRISTO : 1945 [facility] Initial: C Age: 72 year(s) Patient #: [id number] Race: Unknown SSN: [id number] Additional ID: [id number] Contact details Address: [address] [place] [address] State: [place] City: [place] Zip code: [address] Past Medical History Allergies Allergen Reaction Date Comments Reported Other allergy 05/16/2016 Sulfa, Doxycyline, Steroids Other allergy 08/15/2016 doxycycline, medrol Other allergy 09/17/2017 doxycycline,medrol Admission Admission Data Admission Date: 09/17/2017 Admission Time: 8:11 Admit Source: Other Lab Results Lab Result Date: 09/17/2017 Lab Result Time: 0:00 Biochemistry Name Units Result Min Max BUN mg/dl 14 --(--*-)-- 7 18 Creatinine mg/dl 0.5 -*(----)-- 0.6 1.3 CBC Name Units Result Min Max Hematocrit % 43.1 --(*---)-- 42 54 Hemoglobin g/dl 13.9 --(*---)-- 13.5 17.5 Procedure Procedure Types Cath Procedure Diagnostic Procedure [facility] w/Coronaries PCI Procedure Coronary Stent Coronary Stent Initial Procedure Description Procedure Date Procedure Date: 09/17/2017 Procedure Start Time: 10:47 Procedure End Time: 11:09 Procedure Staff Name Function Gerber Huang MD Performing Physician Tez Garcia RT Scrub Patrice Menon RN Nurse Ronan Luna RT Monitor Procedure Data Cath Procedure Fluoroscopy Diagnostic fluoroscopy Total fluoroscopy Time: 2.2 time: 2.2 min min Diagnostic fluoroscopy Total fluoroscopy dose: 542 dose: 542 mGy mGy Contrast Material Contrast Material Type Amount (ml) Isovue 300 88 Entry Location Entry Primary Successful Side Size Upsize Upsize Entry Closure Succes sful Closure Location (Fr) 1 (Fr) 2 (Fr) Remarks Device Remarks Femoral Right 5 Fr 6 Fr Exoseal artery Short Estimated blood loss: 10 ml Diagnostic catheters Device Type Used For End Catheter Placement MULTIPACK Pigtail 5 Fr Procedure catheter MULTIPACK JL 4.0 5Fr Procedure catheter MULTIPACK 3DRC 5Fr Procedure catheter Procedure Medications Medication Administration Route Dosage 0.9% NaCl I.V. 100 ml/hr Oxygen etCO2 Nasal cannula 2 l/min Heparin Flush Bag added to field 2 bags (1000units/500ml NS) Lidocaine 2% added to field 20 Versed I.V. 1 mg Fentanyl I.V. 50 mcg Versed I.V. 1 mg Fentanyl I.V. 50 mcg Heparin Bolus I.V. 4000 units Integrilin (Bolus I.V. 7.3 ml 2mg/ml) Integrilin (Bolus wasted 2.7 ml 2mg/ml) Plavix P.O. 600 mg Hemodynamics Rest HGB: 13.9 (g/dl) Heart Rate: 60 (bpm) Pressure Samples Time Site Value (mmHg) Purpose Heart Use Rate(bpm) 10:48 LV 61/12,11 Snapshot 66 Snapshots Pre Cath Intra NCS Post Cath Vital Signs Time Heart Resp SPO2 etCO2 NIBP (mmHg) Rhythm Pain Sedation Rate (ipm) (%) (mmHg) Status Level (bpm) 10:36:23 60 10 89 0 126/71(95) Paced 0 (11) 10(A) , No pain 10:41:02 60 19 98 28.5 136/74(94) Paced 0 (11) 10(A) , No pain 10:45:42 60 17 97 0 120/72(84) Paced 0 (11) 10(A) , No pain 10:50:19 60 16 94 34.5 115/69(101) Paced 0 (11) 10(A) , No pain 10:54:53 60 17 95 6 113/72(99) Paced 0 (11) 9(A) , No pain 11:00:06 59 12 98 35.3 131/79(112) Paced 0 (11) 9(A) , No pain 11:04:45 60 19 99 25.5 141/86(116) Paced 0 (11) 10(A) , No pain 11:09:26 60 7 96 0 142/82(109) Paced 0 (11) 10(A) , No pain Medications Time Medication Route Dose Verified Delivered Reason Notes Effectiveness by by 10:35:35 0.9% NaCl I.V. 100 Patrice Patrice Per physician ml/hr Sinan Menon RN RN 10:35:44 Oxygen etCO2 2 Patrice Patrice Per physician Nasal l/min Sinan Menon cannula RN RN 10:35:55 Heparin Flush added 2 Patrice Patrice used for Bag to bags Sinan Menon procedure (1000units/500ml field CHOWDHURY RN NS) 10:36:07 Lidocaine 2% added 20ml Patrice Patrice for local to vial Sinan Menon anesthetic field CHOWDHURY RN 10:36:29 Versed I.V. 1 mg Patrice Patrice for sedation Sinan Menon RN RN 10:36:39 Fentanyl I.V. 50 Patrice Patrice for sedation mcg Sinan Menon RN RN 10:44:09 Versed I.V. 1 mg Patrice Patrice for sedation Sinan Menon RN RN 10:44:16 Fentanyl I.V. 50 Patrice Patrice for sedation mcg Sinan Menon RN RN 10:56:40 Heparin Bolus I.V. 4000 Patrice Patrice for units Sinan Menon anticoagulation RN RN 10:56:58 Integrilin I.V. 7.3 Patrice Patrice for (Bolus 2mg/ml) ml Sinan Menon antiplatelet RN RN therapy 10:57:09 Integrilin wasted 2.7 Patrice Patrice to sharp's (Bolus 2mg/ml) ml Sinan Menon RN RN 11:01:18 Plavix P.O. 600 Patrice Patrice for mg Sinan Menon antiplatelet RN RN therapy Procedure Log Time Note 10:10:53 Patrice Menon RN sent for patient. Start room use. 10:23:27 Informed consent obtained and on chart 10:23:30 Admit Source: Other 10:23:49 Diagnostic Cath status Elective 10:23:58 Time tracking: Regular hours (M-F 7:00 - 5:00) 10:24:00 Plan of Care:Hemodynamics will remain stable., Cardiac rhythm will remain stable., Comfort level will be maintained., Respiratory function will remain adequate., Patient/ family verbilizes understanding of procedure., Procedure tolerated without complication., Recovers from procedure without complications.. 10:24:04 Patient received from Pre/Post Procedure Room to CCL 1 Alert and oriented. Tansferred to table in Supine position. 10:24:05 Warm blankets applied, and aayush hugger turned on for patient comfort. 10:24:05 Correct patient and procedure confirmed by team. 10:24:06 ECG and BP/O2 sat monitors applied to patient. 10:25:05 H&P Date Dictated: 09/12/2017 Within 30 days and on chart., H&P Addendum completed by physician on day of procedure. (MUST COMPLETE FOR ALL OUTPATIENTS). 10:25:30 Pre-procedure instructions explained to patient. 10:25:30 Pre-op teaching completed and patient verbalized understanding. 10:25:31 Family in waiting room. 10:25:33 Patient NPO since Midnight. 10:25:49 Patient allergic to Other allergydoxycycline,medrol 10:25:50 Is the patient allergic to Iodine/contrast media? No. 10:26:08 Previous problem with sedation/anesthesia? No ? 10:26:08 Snore? Yes 10:26:09 Sleep apnea? Yes 10:26:10 Deviated septum? No 10:26:11 Opens mouth fully? Yes 10:26:13 Sticks out tongue? Yes 10:26:15 Airway obstruction? No ? 10:26:16 Dentures? No ? 10:26:18 Patient diabetic? No. 10:26:20 Is patient on blood thinner?No 10:26:22 Pre procedure: right dorsailis pedis pulse 2+ Normal; easily identifiable; not easily obliterated 10:26:24 Patient pain scale 0/10 ?. 10:26:33 IV patent on arrival in left forearm with 0.9% NaCl at [facility]. 10::57 Lab Result : Creatinine 0.5 mg/dl 10:: Lab Result : BUN 14 mg/dl ::57 Lab Result : Hemoglobin 13.9 g/dl :26:57 Lab Result : Hematocrit 43.1 % 10:26:59 Lab results completed and on chart. 10:27:03 Use device set Femoral Dx 10:27:04 ACIST Syringe (23765) opened to sterile field. 10:27:04 Bag Decanter (2002S) opened to sterile field. 10:27:05 Medline Cath Pack ([id number]) opened to sterile field. 10:27:06 ACIST Hand Control (97260) opened to sterile field. 10:27:07 ACIST Manifold (15522) opened to sterile field. 10:27:08 Tegaderm 4 x 4 (1626W) opened to sterile field. 10:27:08 DIAGNOSTIC WIRE .035 260cm J wire (897437) opened to sterile field. 10:27:09 DIAGNOSTIC Multipack 5Fr catheter set (NB6473) opened to sterile field. 10:27:12 SHEATH Prelude 5Fr 0.035 (HEI-4Y-08-035) opened to sterile field. 10:27:21 Alarms reviewed by R. N. 10:27:22 Sharps counted by scrub and verified by R.N. 10:35:33 Vital chart was started 10:35:34 Baseline sample Acquired. 10:35:34 Full Disclosure recording started 10:35:35 0.9% NaCl 100 ml/hr I.V. was administered by Patrice Menon RN; Per physician; 10:35:35 Baseline sample Acquired. 10:35:39 Rhythm: paced 10:35:44 Oxygen 2 l/min etCO2 Nasal cannula was administered by Patrice Menon RN; Per physician; 10:35:55 Heparin Flush Bag (1000units/500ml NS) 2 bags added to field was administered by Patrice Menon RN; used for procedure; 10:35:56 Physician arrived 10:35:56 --------ALL STOP TIME OUT------ 10:35:56 Final Timeout: patient, procedure, and site verified with staff and physician. All members of the team are in agreement. 10:35:58 Right groin site verified by team. 10:36:00 Physical assessment completed. ASA score P 2 - A patient with mild systemic disease as per Gerber Huang MD. 10:36:03 Sedation plan: IV Moderate Sedation Medication:Versed, Fentanyl 10:36:07 Lidocaine 2% 20ml vial added to field was administered by Patrice Menon RN; for local anesthetic; 10:36:29 Versed 1 mg I.V. was administered by Patrice Menon RN; for sedation; 10:36:39 Fentanyl 50 mcg I.V. was administered by Patrice Menon RN; for sedation; 10:44:09 Versed 1 mg I.V. was administered by Patrice Menon RN; for sedation; 10:44:16 Fentanyl 50 mcg I.V. was administered by Patrice Menon RN; for sedation; 10:44:54 Zero performed for pressure channel P1 10:46:57 Procedure started. 10:47:14 Local anesthetic to right femoral artery with Lidocaine 2% by Gerber Huang MD.INITIAL ACCESS ONLY 10:47:38 A 5 Fr sheath was inserted into the Right Femoral artery 10:48:06 A MULTIPACK Pigtail 5 Fr catheter was advanced over the wire and used for Procedure. 10:49:04 LV hemodynamics recorded. 10:49:09 LV gram done using HAIRSTON 10:49:15 EF : 60 % 10:49:18 Catheter removed. 10:49:24 A MULTIPACK JL 4.0 5Fr catheter was advanced over the wire and used for Procedure. 10:49:56 LCA angiography performed. 10:51:07 Catheter removed. 10:51:15 A MULTIPACK 3DRC 5Fr catheter was advanced over the wire and used for Procedure. 10:51:22 RCA angiography performed. 10:51:24 Catheter removed. 10:51:25 Proceeding to intervention. 10:51:41 INFLATOR Merit BasixCompak (NJ6787) opened to sterile field. 10:51:43 WHISPER 190cm wire ([id number]) opened to sterile field. 10:51:52 SHEATH 6Fr Prelude ([id number]) opened to sterile field. 10:52:25 GUIDE 6FR EBU 3.5 catheter ([id number]) opened to sterile field. 10:52:45 Sheath upsized to a 6 Fr Short. 10:53:28 6 Fr EBU 3.5 guide catheter was inserted over the wire 10:55:53 WHISPER wire advanced. 10:56:40 Heparin Bolus 4000 units I.V. was administered by Patrice Menon RN; for anticoagulation; 10:56:58 Integrilin (Bolus 2mg/ml) 7.3 ml I.V. was administered by Patrice Menon RN; for antiplatelet therapy; 10:57:00 Wire advanced across lesion. 10:57:09 Integrilin (Bolus 2mg/ml) 2.7 ml wasted was administered by Patrice Menon RN; to sharp's; 10:57:48 Place stent Inflation Number: 1 A INTEGRITY RX 3.5 x 22 stent ([id number]) was prepped and advanced across the Prox LAD. The stent was deployed at 11 JANEY for 0:10 (min:sec). 10:59:08 Stent catheter was removed intact over wire. 10:59:09 Wire removed. 10:59:10 Guide catheter removed. 11:01:18 Plavix 600 mg P.O. was administered by Patrice Menon RN; for antiplatelet therapy; 11:01:19 EXOSEAL 6Fr (EX600) opened to sterile field. 11:01:38 Procedure ended.(Physican Out) 11:01:54 Fluoroscopy time 02.20 minutes. 11:02:01 Fluoroscopy dose: 542 mGy 11:02:01 Flurop Dose total: 542 11:02:45 Contrast amount:Isovue 300 88ml. 11:02:47 Sharpnils counted by scrub and verified by R.N. 11:03:50 Sheath removed intact; hemostasis achieved with Exoseal to the Right Femoral artery. 11:04:10 Procedure type changed to Cath procedure, Diagnostic procedure, LHC, LHC w/Coronaries, PCI procedure, Coronary Stent, Coronary Stent Initial 11:05:22 Insertion/operative site no bleeding no hematoma. 11:05:26 Post-op/insertion site Right Femoral artery dressed using a 4 x 4 and Tegaderm. 11:05:30 Post right femoral artery:stable 11:05:45 Post-procedure physical assessment completed. ASA score P 2 - A patient with mild systemic disease as per Gerber Huang MD. 11:05:52 Post procedure rhythm: sinus rhythm 11:05:56 Estimated blood loss: 10 ml 11:06:00 Procedure and supply charges have been captured, reviewed, submitted and are correct. 11:08:49 Vital chart was stopped 11:08:56 See physician's report for complete and final results. 11:09:01 Report given to Pre/Post Procedure Room. 11:09:05 Patient transfered to Pre/Post Procedure Room with Stretcher. 11:09:07 Procedure ended. 11:09:07 Full Disclosure recording stopped 11:09:11 End room use (Document Last) Intervention Summary Intervention Notes Time ActionType Lesion and Equipment Action# Pressure Duration Attributes Used 10:57:[address] Place stent Prox LAD INTEGRITY RX 1 11 00:10 3.5 x 22 stent ([id number]) Device Usage Item Name Manufacture Quantity Catalog Number Hospital Part Current M inimal Lot# / Charge Number Stock Stock Serial# Code ACIST Syringe Acist 1 36389 515324 764528 469247 2 0 (52650) Medical Systems Yidio Bag Decanter Microtek 1 2001S 781031 47186 468028 5 () Medical Inc. Medline Cath Cardinal 1 [id number] 372826 11171 692213 5 Pack Health ([id number]) ACIST Hand Acist 1 24410 742326 238922 495540 5 Control (78549) Medical Systems Yidio ACIST Manifold Acist 1 43159 803951 963575 888502 5 (26859) Medical Systems Inc Tegaderm 4 x 4 3M 1 1626W 565523 223853 835951 5 (1626W) DIAGNOSTIC WIRE [facility] Delfino 1 815252 173614 292417 860833 3 0 .035 260cm J wire (680976) DIAGNOSTIC Cardinal 1 SG1123 576129 32483 547398 3 0 Multipack 5Fr Health catheter set ([id number]) SHEATH Prelude Merit 1 KNS-5V-04-035 692120 036523 086116 5 5Fr 0.035 Medical (LVT-2H-47-035) MULTIPACK Cardinal 1 657366 5 Pigtail 5 Fr Health catheter MULTIPACK JL Cardinal 1 746973 5 4.0 5Fr Health catheter MULTIPACK 3DRC Cardinal 1 639821 5 5Fr catheter Health INFLATOR Merit Merit 1 AK7047 251664 454521 981462 1 5 Spectral Image Medical (TJ0446) WHISPER 190cm Davis 1 [id number] 309417 259698 312000 5 wire Vascular ([id number]) SHEATH 6Fr Merit 1 [id number] 209656 148640 815283 5 Prelude Medical ([id number]) GUIDE 6FR EBU Medtronic 1 [id number] 546959 35763 703611 3 3.5 catheter ([id number]) INTEGRITY RX Medtronic 1 [id number] 806571 299257 407998 5 [id number] 3.5 x 22 stent ([id number]) EXOSEAL 6Fr Cardinal 1 EX600 153543 250233 940117 1 0 (EX600) Health Signature Audit [place] Stage Time Signature Unsigned Intra-Procedure 09/17/2017 Ronan Luna 11:10:33 AM RT(R) (CV) Signatures Monitor : Ronan Luna RT Signature : Date : Time : [address] [place] [address]
--- NOTE | ~2017-09-17 | OP ---
PATIENT NAME: RENAE LEMONS MEDICAL RECORD: [id number] :45 LOCATION:D.CAT ADMISSION DATE: SURGEON: CAIN BLANCO MD DATE OF OPERATION: 09/17/2017 PROCEDURES: 1. PTCA stent LAD. 2. Left heart catheterization. 3. Selective coronary angiography. 4. Left ventriculogram. INDICATION: Angina and coronary artery disease. PROCEDURE IN DETAIL: After informed consent was obtained and after a detailed description of risks, benefits as well as alternative therapies, the patient elected to proceed with angiogram and angioplasty. The right femoral area was prepped and draped in normal sterile fashion. Right femoral artery was cannulated via modified Seldinger technique with placement of 6-Lithuanian sheath. All catheters exchanged through this sheath. FINDINGS: Left ventriculogram was performed in a standard 30-degree HAIRSTON view, reveals good cardiac wall motion throughout all segments. Overall ejection fraction estimated 60%. SELECTIVE CORONARY ANGIOGRAPHY: 1. Left main is with no significant angiographic disease. 2. Left anterior descending has 70% to 75% stenosis in the mid vessel. 3. Left circumflex has moderate irregularities, but no flow-limiting stenosis. 4. Right coronary artery has moderate irregularities, but no flow-limiting stenosis. PTCA STENT OF THE LAD: The stent used 3.5 x 22 mm Integrity. Result was 0% residual stenosis. OVERALL IMPRESSION: Successful percutaneous transluminal coronary angioplasty stent of the left anterior descending going from 70% to 75% initial stenosis to 0% residual. TRANSINT:[id number] Voice Confirmation ID: [id number] DOCUMENT ID: [id number] CAIN BLANCO MD at 1713 CC: [id number] DICTATION DATE: 09/17/17 1104 STAPLE LASTER: 09/17/17 1118 DEP CLI 09/17/17 [facility] [address] [id number]
[2017-09-17] MEDS ORDERED: BENADRYL50 MG (08:52)
[2017-09-17 09:22] VITALS: BP 134/73; Ht 172.7 cm; Wt 79.5 kg
[2017-09-17 09:36] LABS: BASOPHILS 0.4 % (0-2); EOSINOPHILS 2.3 % (0-7); HEMATOCRIT 41.8 % (42.0-54.0); HEMOGLOBIN 14.3 g/dL (13.5-17.5); IMMATURE GRANULOCYTES 0.2 % (0-5); LYMPHOCYTES 32.9 % (15-50); MCH 29.9 pg (26.0-34.0); MCHC 34.2 g/dL (31.0-37.0); MCV 87.3 fL (80.0-100.0); MEAN PLATELET VOLUME 9.2 fL (7.4-10.4); MONOCYTES 12.2 % (2-11); PLATELET COUNT 208 10x3/uL (130-400); RBC 4.79 10x6/uL (4.20-6.10); RDW 13.4 % (11.5-14.5); WBC 5.2 10x3/uL (4.8-10.8)
[2017-09-17 09:47] LABS: ANION GAP 11.1 mmol/L (8-16); CALCIUM 9.3 mg/dL (8.5-10.1); CARBON DIOXIDE 26.8 mmol/L (21.0-32.0); CREATININE - SERUM 1.1 mg/dL (0.6-1.3); POTASSIUM - SERUM 3.9 mmol/L (3.5-5.1)
[2017-09-17] MEDS ORDERED: PLAVIX75 MG PO (11:31)
== END 2017-09-17 15:20 | disposition home or self-care (01) ==
LOC: D.CATH 08:11
PROVIDERS: Internal Medicine Interventional Cardiology
DX: I25.119 Atherosclerotic heart disease of native coronary artery with unspecified angina pectoris (principal); Z01.812 Encounter for preprocedural laboratory examination

== ENCOUNTER → 2017-10-12 14:06 | Outpatient (CLI) | payer MEDICARE, OTHER ==
[2017-09-17 09:22] VITALS: BMI 26.6
[~2017-10-12 14:06] MED LIST changes: +BENADRYL50 MG
[2017-10-12 15:07] LABS: CALCIUM 9.1 mg/dL (8.5-10.1); PHOSPHOROUS 3.5 mg/dL (2.5-4.9)
[2017-10-15 15:23] LABS: EHRLICHIA CHAFF IGG Negative (Neg:<1:64); EHRLICHIA CHAFF IGM Negative (Neg:<1:20); HGE IGG TITER Negative (Neg:<1:64); HGE IGM TITER Negative (Neg:<1:20)
[2017-10-17 15:31] LABS: F. TULARENSIS - IGG Negative (()); F. TULARENSIS - IGM Negative (())
== END | disposition home or self-care (01) ==
LOC: D.LABREF 14:06
PROVIDERS: Student in an Organized Health Care Education/Training Program
DX: R53.83 Other fatigue (principal)

== ENCOUNTER → 2018-01-11 12:31 | Outpatient (CLI) | payer MEDICARE, OTHER ==
[2017-09-17 09:22] VITALS: BMI 26.6
[~2018-01-11 12:31] MED LIST changes: +AUGMENTIN 875-11 TAB PO; +FERROUS SULFAT140 MG PO; +LOPRESSOR25 MG PO; +PROPAFENONE HC150 MG PO; +VITAMIN D3400 UNI1 PO
== END | disposition home or self-care (01) ==
LOC: D.RT 12:31
DX: J44.9 Chronic obstructive pulmonary disease, unspecified (principal)

== ENCOUNTER → 2018-01-18 07:15 | Outpatient (CLI) | payer MEDICARE, OTHER ==
[~2018-01-18] VITALS: Ht 172.7 cm; Wt 79.5 kg
--- NOTE | ~2018-01-18 | OP ---
PATIENT NAME: RENAE LEMONS MEDICAL RECORD: [id number] :45 LOCATION:D.CAT ADMISSION DATE: SURGEON: CAIN BLANCO MD DATE OF OPERATION: 01/18/2018 DATE OF SERVICE: 01/18/2018 PROCEDURES: 1. PTCA stent LAD. 2. Left heart catheterization. 3. Selective coronary angiography. 4. Left ventriculogram. INDICATION: Angina and coronary artery disease. PROCEDURE IN DETAIL: After informed consent was obtained and after a detailed description of risks, benefits as well as alternative therapies, the patient elected to proceed with angiogram and angioplasty. The right femoral area was prepped and draped in normal sterile fashion. Right femoral artery was cannulated via modified Seldinger technique with placement of 6-Malaysian sheath. All catheters exchanged through this sheath. FINDINGS: Left ventriculogram was performed in standard 30-degree HAIRSTON view, reveals preserved cardiac wall motion, ejection fraction is 60%. SELECTIVE CORONARY ANGIOGRAPHY: 1. Left main is with no significant angiographic disease. 2. Left anterior descending has a previously placed stent with greater than 70% in-stent restenosis in the proximal vessel. 3. The left circumflex has mild irregularities, but no flow-limiting stenosis. 4. Right coronary has mild irregularities, but no flow-limiting stenosis. PTCA STENT OF THE LAD: The stent used are 3.5 x 26 and 3.5 x 12, both [place] stents. Result was 0% residual stenosis. OVERALL IMPRESSION: Successful percutaneous transluminal angioplasty stent of the left anterior descending going from 70+ percent initial stenosis to 0% residual. TRANSINT:[id number] Voice Confirmation ID: [id number] DOCUMENT ID: [id number] CAIN BLANCO MD at 1914 CC: [id number] DICTATION DATE: 01/18/18 1031 [employer] MA[employer]GER: 01/18/18 1038 [facility] [address] [place] [address]
--- NOTE | ~2018-01-18 | HEMODYNAMI ---
PATIENT:RENAE LEMONS MEDICAL RECORD: [id number] : 45 LOCATION:[facility] ADMISSION DATE: 01/18/18 Generatedon:01/18/201810:29 Patient name: RENAE LEMONS Patient #: [id number] SSN: [id number] : 1945 Date of study: 01/18/2018 Page: Of Hemodynamic Procedure Report Patient Data Patient Demographics Procedure consent was obtained First Name: RENAE Gender: Male Last Name: CRISTO : 1945 [facility] Initial: C Age: 73 year(s) Patient #: [id number] Race: Unknown SSN: [id number] Additional ID: [id number] Contact details [address]: [address] [place] [address] State: [place] City: [place] Zip code: [address] Past Medical History Allergies Allergen Reaction Date Comments Reported Other allergy 05/16/2016 Sulfa, Doxycyline, Steroids Other allergy 08/15/2016 doxycycline, medrol Other allergy 09/17/2017 doxycycline,medrol Admission Admission Data Admission Date: 01/18/2018 Admission Time: 7:15 Arrival Date: 01/18/2018 Arrival Time: 9:30 Admit Source: Other Insurance Payor: Medicare Height (in.): 68 BSA: 1.96 (m2) Height (cm.): 172.72 BMI: 27.52 (kg/m2) Weight (lbs.): 181 Weight (kg.): 82.1 Lab Results Lab Result Date: 01/18/2018 Lab Result Time: 0:00 Biochemistry Name Units Result Min Max BUN mg/dl 19 --(----)*- 7 18 Creatinine mg/dl 0.9 --(-*--)-- 0.6 1.3 CBC Name Units Result Min Max Hemoglobin g/dl 12.5 *-(----)-- 13.5 17.5 Procedure Procedure Types Cath Procedure Diagnostic Procedure C [facility] w/Coronaries PCI Procedure Coronary Stent Coronary Stent Initial Procedure Description Procedure Date Procedure Date: 01/18/2018 Procedure Start Time: 10:06 Procedure End Time: 10:26 Procedure Staff Name Function Gerber Huang MD Performing Physician Bárbara Sanches RT Monitor Colleen Cabrera RT Scrub Avinash Amado RN Nurse Laureen Ho RN Credit Risk Modeler Procedure Data Cath Procedure Fluoroscopy Diagnostic fluoroscopy Total fluoroscopy Time: 6.1 time: 6.1 min min Diagnostic fluoroscopy Total fluoroscopy dose: dose: 1045 mGy 1045 mGy Contrast Material Contrast Material Type Amount (ml) Isovue 300 133 Entry Location Entry Primary Successful Side Size Upsize Upsize Entry Closure Succes sful Closure Location (Fr) 1 (Fr) 2 (Fr) Remarks Device Remarks Femoral Right 5 Fr 6 Fr Exoseal artery Short Estimated blood loss: 10 ml Diagnostic catheters Device Type Used For End Catheter Placement Medtronic Dexterity 5Fr Procedure Pigtail catheter(NO COST SUPPLY) Medtronic Dexterity 5Fr Procedure JL 4.0 catheter (NO COST SUPPLY) Medtronic Dexterity 5Fr Procedure 3DRC catheter (NO COST SUPPLY) DIAGNOSTIC AR2 MOD 5 Fr Procedure catheter ([id number]) Procedure Complications No complications Procedure Medications Medication Administration Route Dosage Oxygen etCO2 Nasal cannula 2 l/min Lidocaine 2% added to field 20 Heparin Flush Bag added to field 2 bags (1000units/500ml NS) 0.9% NaCl I.V. 100 ml/hr Versed I.V. 2 mg Fentanyl I.V. 50 mcg Versed I.V. 1 mg Fentanyl I.V. 50 mcg Versed I.V. 1 mg Heparin Bolus I.V. 4000 units Integrilin (Bolus I.V. 7.3 ml 2mg/ml) Plavix P.O. 600 mg Hemodynamics Rest BSA: 1.96 (m2) O2 Consumption: Estimated: 219.25 (ml/min) O2 Consumption indexed : Estimated:111.86 (ml/min/m) Heart Rate: 61 (bpm) Pressure Samples Time Site Value (mmHg) Purpose Heart Use Rate(bpm) 10:08 LV 84/10,17 Snapshot 60 Snapshots Pre Cath Intra NCS Post Cath Vital Signs Time Heart Resp SPO2 etCO2 NIBP Rhythm Pain Sedation Rate (ipm) (%) (mmHg) (mmHg) Status Level (bpm) 9:21:14 61 13 98 35.8 111/70(92) NSR 0 (11) 10(A) , No pain 9:25:20 60 13 98 35.1 115/75(88) NSR 0 (11) 10(A) , No pain 9:29:30 60 16 98 26.9 102/66(80) NSR 0 (11) 10(A) , No pain 9:33:34 60 15 96 17.1 110/66(83) NSR 0 (11) 10(A) , No pain 9:37:39 59 15 97 12.7 105/73(91) NSR 0 (11) 10(A) , No pain 9:41:43 60 14 98 11.2 107/69(84) NSR 0 (11) 10(A) , No pain 9:46:40 60 17 98 30.6 116/72(93) NSR 0 (11) 10(A) , No pain 9:50:46 59 16 98 37.3 122/74(93) NSR 0 (11) 10(A) , No pain 9:55:00 60 17 98 9.7 97/60(76) NSR 0 (11) 10(A) , No pain 9:59:05 60 15 97 29.1 107/57(77) NSR 0 (11) 10(A) , No pain 10:03:13 60 19 94 0 92/60(75) NSR 0 (11) 10(A) , No pain 10:07:15 60 13 92 0 97/63(77) NSR 0 (11) 9(A) , No pain 10:11:19 60 14 95 14.2 106/60(81) NSR 0 (11) 9(A) , No pain 10:15:23 60 15 94 29.1 96/67(84) NSR 0 (11) 9(A) , No pain 10:19:24 60 12 96 30.6 95/64(83) NSR 0 (11) 9(A) , No pain 10:23:28 60 17 95 6.7 107/61(80) NSR 0 (11) 9(A) , No pain 10:28:13 60 22 97 9.7 107/71(90) NSR 0 (11) 10(A) , No pain Medications Time Medication Route Dose Verified Delivered Reason Notes Effectiveness by by 9:19:21 Oxygen etCO2 2 Gerber Garduno used for Nasal l/min Reina Ho RN procedure cannula 9:19:44 Lidocaine 2% added 20ml Gerber Mayes for local to vial Reina Huang MD anesthetic field 9:19:50 Heparin Flush added 2 Gerber Mayes used for Bag to bags Reina Huang MD procedure (1000units/500ml field NS) 9:20:02 0.9% NaCl I.V. 100 Gerber Garduno Per physician ml/hr Reina Ho RN 10:05:07 Versed I.V. 2 mg Gerber Garduno for sedation Reina Ho RN 10:05:13 Fentanyl I.V. 50 Gerber Garduno for sedation mcg Reina Ho RN 10:07:37 Versed I.V. 1 mg Gerber Josephie for sedation Reina Ho RN 10:07:41 Fentanyl I.V. 50 Gerber Josephie for sedation mcg Reina Ho RN 10:14:26 Versed I.V. 1 mg Gerber Garduno for sedation Reina Ho RN 10:15:58 Heparin Bolus I.V. 4000 Gerber Garduno for verif ied units Reina Ho RN anticoagulation with dr huang 10:17:08 Integrilin I.V. 7.3 Gerber Garduno for (Bolus 2mg/ml) ml Reina Ho RN antiplatelet therapy 10:26:13 Plavix P.O. 600 Gerber Garduno for mg Reina Ho RN antiplatelet therapy Procedure Log Time Note 9:03:11 Colleen Cabrera RT(R) sent for patient. Start room use. 9:03:12 Time tracking: Regular hours (M-F 7:00 - 5:00) 9:03:16 Plan of Care:Hemodynamics will remain stable., Cardiac rhythm will remain stable., Comfort level will be maintained., Respiratory function will remain adequate., Patient/ family verbilizes understanding of procedure., Procedure tolerated without complication., Recovers from procedure without complications.. 9:03:28 Patient Height : 68 inches 9:03:33 Patient Weight : 181 lbs 9:03:33 Admit Source: Other 9:03:40 Arrival Date: 01/18/2018 9:30:00 AM 9:03:45 Insurance Payor : Medicare 9:06:27 Lab Result : Creatinine 0.9 mg/dl 9:: Lab Result : BUN 19 mg/dl 9:: Lab Result : Hemoglobin 12.5 g/dl 9:16:58 Patient received from Pre/Post Procedure Room to CCL 2 Alert and oriented. Tansferred to table in Supine position. 9:16:59 Warm blankets applied, and aayush hugger turned on for patient comfort. 9:17:00 Correct patient and procedure confirmed by team. 9:17:01 Signed procedure consent form obtained from patient. 9:17:02 ECG and BP/O2 sat monitors applied to patient. 9:19:21 Oxygen 2 l/min etCO2 Nasal cannula was administered by Laureen Ho RN; used for procedure; 9:19:44 Lidocaine 2% 20ml vial added to field was administered by Gerber Huang MD; for local anesthetic; 9:19:50 Heparin Flush Bag (1000units/500ml NS) 2 bags added to field was administered by Gerber Huang MD; used for procedure; 9:20:02 0.9% NaCl 100 ml/hr I.V. was administered by Laureen Ho RN; Per physician; 9:20:05 Vital chart was started 9:21:37 Baseline sample Acquired. 9:21:46 Rhythm: sinus rhythm 9:21:48 Full Disclosure recording started 9:21:51 H&P Date Dictated: 01/18/2018 Within 30 days and on chart., H&P Addendum completed by physician on day of procedure. (MUST COMPLETE FOR ALL OUTPATIENTS). 9:21:52 Pre-procedure instructions explained to patient. 9:21:53 Pre-op teaching completed and patient verbalized understanding. 9:21:55 Family in waiting room. 9:21:56 Patient NPO since Midnight. 9:22:00 Is the patient allergic to Iodine/contrast media? No. 9:22:01 Was the patient premedicated? No 9:22:03 Is patient on blood thinner?No 9:22:04 Patient diabetic? No. 9:22:06 Previous problem with sedation/anesthesia? No ? 9:22:08 Snore? Yes 9:22:08 Sleep apnea? Yes 9:22:10 Deviated septum? No 9:22:11 Opens mouth fully? Yes 9:22:12 Sticks out tongue? Yes 9:22:16 Airway obstruction? No ? 9:22:28 Dentures? No ? 9:22:37 Pre procedure: right dorsailis pedis pulse 2+ Normal; easily identifiable; not easily obliterated 9:22:39 Pre procedure: left dorsailis pedis pulse 2+ Normal; easily identifiable; not easily obliterated 9:22:41 Patient pain scale 0/10 ?. 9:22:45 IV patent on arrival in left forearm with 0.9% NaCl at [facility]. 9:22:48 Lab results completed and on chart. 9:22:52 Right groin area was prepped with chlora-prep and draped in sterile fashion 9:22:53 Alarms reviewed by R. N. 9:22:54 Sharps counted by scrub and verified by R.N. 9:39:20 Zero performed for pressure channel P1 9:39:27 Zero performed for pressure channel P1 9:41:50 Physician paged 10:04:12 Physician arrived 10:04:12 --------ALL STOP TIME OUT------ 10:04:13 Final Timeout: patient, procedure, and site verified with staff and physician. All members of the team are in agreement. 10:04:16 Right groin site verified by team. 10:04:25 Physical assessment completed. ASA score P 2 - A patient with mild systemic disease as per Gerber Huang MD. 10:04:29 Sedation plan: IV Moderate Sedation Medication:Versed, Fentanyl 10:04:38 Use device set Femoral Dx 10:04:42 ACIST Syringe (35593) opened to sterile field. 10:04:42 Bag Decanter (2002) opened to sterile field. 10:04:43 Medline Cath Pack ([id number]) opened to sterile field. 10:04:45 DIAGNOSTIC WIRE .035 260cm J wire (729770) opened to sterile field. 10:04:47 ACIST Hand Control (59197) opened to sterile field. 10:04:47 ACIST Manifold (27057) opened to sterile field. 10:04:48 DIAGNOSTIC Multipack 5Fr catheter set (TR5472) opened to sterile field. 10:04:49 Tegaderm 4 x 4 (1626W) opened to sterile field. 10:04:52 PERCUTANEOUS ENTRY 19GA needle opened to sterile field. 10:05:02 SHEATH Prelude 5Fr 0.035 (LDS-7B-33-035) opened to sterile field. 10:05:07 Versed 2 mg I.V. was administered by Laureen Ho RN; for sedation; 10:05:13 Fentanyl 50 mcg I.V. was administered by Laureen Ho RN; for sedation; 10:06:10 Procedure started. 10:06:27 Local anesthetic to right femoral artery with Lidocaine 2% by Gerber Huang MD.INITIAL ACCESS ONLY 10:06:41 A 5 Fr sheath was inserted into the Right Femoral artery 10:06:50 A Medtronic Dexterity 5Fr Pigtail catheter(NO COST SUPPLY) was advanced over the wire and used for Procedure. 10:07:06 LV angiography performed. 10:07:37 Versed 1 mg I.V. was administered by Laureen Ho RN; for sedation; 10::41 Fentanyl 50 mcg I.V. was administered by Laureen Ho RN; for sedation; 10:08:16 EF : 60 % 10:08:24 Catheter removed. 10:08:33 A Medtronic Dexterity 5Fr JL 4.0 catheter (NO COST SUPPLY) was advanced over the wire and used for Procedure. 10:08:53 LCA angiography performed. 10:09:51 Catheter removed. 10:10:34 A Medtronic Dexterity 5Fr 3DRC catheter (NO COST SUPPLY) was advanced over the wire and used for Procedure. 10:12:10 Catheter removed. 10:13:09 unable to cannulate RCA 10:13:20 A DIAGNOSTIC AR2 MOD 5 Fr catheter ([id number]) was advanced over the wire and used for Procedure. 10:14:26 Versed 1 mg I.V. was administered by Laureen Ho RN; for sedation; 10:15:30 RCA angiography performed. 10:15:32 Catheter removed. 10:15:37 SHEATH Prelude 6Fr 0.035 (TKG-8B-92-035) opened to sterile field. 10:15:37 INFLATOR Merit BasixCompak (HR0416) opened to sterile field. 10:15:37 CHOICE PT Extra Support 182cm wire ([id number]) opened to sterile field. 10:15:39 GUIDE 6FR XBLAD 3.5 catheter ([id number]) opened to sterile field. 10:15:43 Proceeding to intervention. 10:15:52 Sheath upsized to a 6 Fr Short. 10:15:58 Heparin Bolus 4000 units I.V. was administered by Laureen Ho RN; for anticoagulation; verified with dr huang 10:16:05 6 Fr XBLAD 3.5 guide catheter was inserted over the wire 10:16:10 choice pt ex wire advanced. 10:17:08 Integrilin (Bolus 2mg/ml) 7.3 ml I.V. was administered by Laureen Ho RN; for antiplatelet therapy; 10:19:06 Wire advanced across lesion. 10:20:37 Place stent Inflation Number: 1 A JOANNA RX 3.5 x 26 stent ([id number]) was prepped and advanced across the Mid LAD. The stent was deployed at 19 JANEY for 0:09 (min:sec). 10:22:42 Stent catheter was removed intact over wire. 10:23:17 Place stent Inflation Number: 1 A JOANNA RX 3.5 x 12 stent ([id number]) was prepped and advanced across the Prox LAD. The stent was deployed at 17 JANEY for 0:09 (min:sec). 10:24:36 EXOSEAL 6Fr (EX600) opened to sterile field. 10:24:42 Stent catheter was removed intact over wire. 10:24:43 Guide catheter removed. 10:24:53 Sheath removed intact; hemostasis achieved with Exoseal to the Right Femoral artery. 10:24:55 Procedure ended.(Physican Out) 10:25:07 Fluoroscopy time 06.10 minutes. 10:25:11 Fluoroscopy dose: 1045 mGy 10:25:11 Flurop Dose total: 1045 10:25:16 Contrast amount:Isovue 300 133ml. 10:25:18 Sharps counted by scrub and verified by R.N. 10:25:20 Insertion/operative site no bleeding no hematoma. 10:25:24 Post-op/insertion site Right Femoral artery dressed using a 4 x 4 and Tegaderm. 10:25:26 Post Procedure Pulses reassessed and unchanged 10:25:31 Post-procedure physical assessment completed. ASA score P 2 - A patient with mild systemic disease as per Gerber Huang MD. 10:25:34 Post procedure rhythm: unchanged. 10:25:38 Estimated blood loss: 10 ml 10:25:39 Post procedure instruction explained to patient.Patient verbalizes understanding. 10:25:51 Procedure type changed to Cath procedure, Diagnostic procedure, LHC, LHC w/Coronaries, PCI procedure, Coronary Stent, Coronary Stent Initial 10:25:52 Procedure and supply charges have been captured, reviewed, submitted and are correct. 10:26:13 Plavix 600 mg P.O. was administered by Laureen Ho RN; for antiplatelet therapy; 10::25 Procedure Complication : No complications 10::27 Vital chart was stopped 10::28 See physician's report for complete and final results. 10:26:30 Report given to Pre/Post Procedure Room. 10::34 Patient transfered to Pre/Post Procedure Room with Stretcher. 10::36 Procedure ended. 10::36 Full Disclosure recording stopped 10::39 End room use (Document Last) Intervention Summary Intervention Notes Time ActionType Lesion and Equipment Used Action# Pressure Duration Attributes 10:20:37 Place stent Mid LAD JOANNA RX 3.5 x 1 19 00:09 26 stent ([id number]) 10:23:17 [address] stent Prox LAD JOANNA RX 3.5 x 1 17 00:09 12 stent ([id number]) Device Usage Item Name Manufacture Quantity Catalog Number Hospital Part Current Minimal Lot# / Charge Number Stock Stock Serial# Code ACIST Syringe Acist 1 00345 268758 [id number] [id number] 20 (80569) [employer] Bag Decanter Microtek 1 2001S 929384 25470 503078 5 () Medical Inc. Medline Cath Medline 1 [id number] 947869 79787 817478 5 Pack ([id number]) DIAGNOSTIC WIRE [facility] [place] 1 877439 126116 822076 246358 30 .035 260cm J wire (281989) ACIST Hand Acist 1 46703 106822 162920 091717 5 Control (66931) [employer] Inc ACIST Manifold Acist 1 43162 289807 250592 643023 5 (86570) [employer] Inc DIAGNOSTIC Cardinal 1 [id number] 025968 93734 402260 30 Multipack 5Fr Health catheter set ([id number]) Tegaderm 4 x 4 3M 1 1626W 315365 013303 006732 5 (1626W) PERCUTANEOUS Cook Medical 1 F88001 534889 300577 5 ENTRY 19GA needle SHEATH Prelude Merit 1 GUO-9A-89-035 453929 756080 983519 5 5Fr 0.035 Medical (KQT-7I-15-035) Medtronic Medtronic 1 [id number] 683430 602731 5 Dexterity 5Fr Pigtail catheter(NO COST SUPPLY) Medtronic Medtronic 1 [id number] 808305 044293 5 Dexterity 5Fr JL 4.0 catheter (NO COST SUPPLY) Medtronic Medtronic 1 [id number] 472815 241940 5 Dexterity 5Fr 3DRC catheter (NO COST SUPPLY) DIAGNOSTIC AR2 Cardinal 1 [id number] 975236 525596 758985 20 MOD 5 Fr Health catheter (813452W) SHEATH Prelude Merit 1 TMN-0X-37-35 956079 5715717 875913 5 6Fr 0.035 Medical (TRF-4B-88-035) INFLATOR Merit Merit 1 [id number] 142636 572400 373533 15 [employer] (UX1727) CHOICE PT Extra [place] 1 [id number] 100576 288630 030315 5 Support 182cm Scientific wire ([id number]) GUIDE 6FR XBLAD Cardinal 1 [id number] 865363 544276 463669 10 3.5 catheter Health (51255503) JOANNA RX 3.5 x Medtronic 1 [id number] 716684 8934429 198779 5 [id number] 26 stent ([id number]) JOANNA RX 3.5 x Medtronic 1 [id number] 150671 3679848 849603 5 [id number] 12 stent ([id number]) EXOSEAL 6Fr Cardinal 1 EX600 143078 859311 477573 10 (EX600) Health Signature Audit [place] Stage Time Signature Unsigned Intra-Procedure 01/18/2018 Bárbara Sanches 10:29:31 AM RT(R) Signatures Monitor : Bárbara Sanches Signature : RT Date : Time : [facility] [address] [place] [address]
[2018-01-18 08:04] VITALS: BP 122/75; Ht 172.7 cm; Wt 79.5 kg
[2018-01-18 08:51] LABS: HEMATOCRIT 45.9 % (42.0-54.0); HEMOGLOBIN 15.8 g/dL (13.5-17.5); LYMPHOCYTES 34.6 % (15-50); MCH 29.6 pg (26.0-34.0); MCHC 34.4 g/dL (31.0-37.0); MCV 86.1 fL (80.0-100.0); MEAN PLATELET VOLUME 9.6 fL (7.4-10.4); NEUTROPHILS 56.3 % (40-80); PLATELET COUNT 239 10x3/uL (130-400); RBC 5.33 10x6/uL (4.20-6.10); RDW 13.6 % (11.5-14.5); WBC 5.4 10x3/uL (4.8-10.8)
[2018-01-18 08:57] LABS: ANION GAP 13.2 mmol/L (8-16); CALCIUM 9.6 mg/dL (8.5-10.1); CARBON DIOXIDE 28.2 mmol/L (21.0-32.0); CREATININE - SERUM 1.2 mg/dL (0.6-1.3); POTASSIUM - SERUM 4.4 mmol/L (3.5-5.1)
== END | disposition home or self-care (01) ==
LOC: D.CATH 07:15
PROVIDERS: Internal Medicine Interventional Cardiology
DX: I25.110 Atherosclerotic heart disease of native coronary artery with unstable angina pectoris (principal); R06.02 Shortness of breath
CPT/HCPCS: C9600; 93458

== ENCOUNTER → 2018-02-13 14:41 | Outpatient (CLI) | payer MEDICARE, OTHER ==
[2018-01-18 08:04] VITALS: BMI 26.6
== END | disposition home or self-care (01) ==
LOC: D.CT 14:41
DX: R91.8 Other nonspecific abnormal finding of lung field (principal)

== ENCOUNTER → 2018-02-26 07:19 | Outpatient (CLI) | payer MEDICARE, OTHER ==
[2018-01-18 08:04] VITALS: BMI 26.6
== END | disposition home or self-care (01) ==
LOC: D.NM 07:19
DX: R93.89 Abnormal findings on diagnostic imaging of other specified body structures (principal)

== ENCOUNTER → 2018-07-29 10:15 | Outpatient (CLI) | payer MEDICARE, OTHER ==
[2018-01-18 08:04] VITALS: BMI 26.6
== END | disposition home or self-care (01) ==
LOC: D.LAB 10:00
PROVIDERS: ATTEND Internal Medicine Pulmonary Disease
DX: J47.9 Bronchiectasis, uncomplicated (principal)

== ENCOUNTER → 2018-07-30 17:21 | Outpatient (CLI) | payer MEDICARE, OTHER ==
[2018-01-18 08:04] VITALS: BMI 26.6
== END | disposition home or self-care (01) ==
LOC: D.LABREF 17:21
PROVIDERS: ATTEND Internal Medicine Pulmonary Disease
DX: J47.9 Bronchiectasis, uncomplicated (principal)

== ENCOUNTER → 2018-08-21 10:02 | Outpatient (CLI) | payer MEDICARE, OTHER ==
[2018-01-18 08:04] VITALS: BMI 26.6
--- NOTE | 2018-08-27 14:37 | ST ---
PATIENT:RENAE LEMONS MEDICAL RECORD: [id number] SEX: M LOCATION:[facility] ORDER #: ADMISSION DATE: 08/21/18 AGE OF PATIENT: 73 REFERRING PHYSICIAN: INTERPRETING PHYSICIAN: CAIN BLANCO MD DATE OF SERVICE: 08/21/2018 Nuclear Stress Test INDICATIONS: Angina, coronary artery disease, atrial fibrillation, shortness of breath, and hypertension. He was exercised on standard Lexiscan protocol with 32 mCi of sestamibi injected at peak stress, 10 mCi used previously for rest images. FINDINGS: Gated SPECT reveals preserved ejection fraction at 75% with decreased thickening and brightening throughout the inferior segments. SPECT IMAGING: Cardiolite was used as myocardial perfusion agent. There is a fixed perfusion defect inferiorly that shows no reversibility in fact this improves with stress showing reverse redistribution. The remaining segments are with homogeneous uptake at rest and stress. OVERALL IMPRESSION: This is an abnormal nuclear stress test. Fixed perfusion defect inferiorly improves with stress and no evidence of inducible ischemia. Continue medical management of the coronary artery disease and cardiac risk factors. TRANSINT:[id number] Voice Confirmation ID: [id number] DOCUMENT ID: [id number] CAIN BLANCO MD at 1437 CC: MARCO ANTONIO HERNANDEZ [phone] DICTATION DATE: 08/23/18 1326 WHARFINGER CHIEF: 08/24/18 0211 DEP CLI 08/21/18 [place] [id number] [place] [address]
== END | disposition home or self-care (01) ==
LOC: D.HCCARDIO 10:02
PROVIDERS: ATTEND Internal Medicine Interventional Cardiology
DX: I25.10 Atherosclerotic heart disease of native coronary artery without angina pectoris (principal)

== ENCOUNTER → 2018-11-11 07:31 | Outpatient (CLI) | payer MEDICARE, OTHER ==
[2018-01-18 08:04] VITALS: BMI 26.6
[2018-11-12 07:14] LABS: IMMUNOGLOBULIN A 333 mg/dL (61-437); IMMUNOGLOBULIN G 1105 mg/dL (700-1600)
[2018-11-13 11:10] LABS: IGG SUBCLASS 1 427 mg/dL (248-810); IGG SUBCLASS 2 532 mg/dL (130-555); IGG SUBCLASS 3 58 mg/dL (15-102); IGG SUBCLASS 4 37 mg/dL (2-96); IGGS - IGG SERUM 1073 mg/dL (700-1600)
[2018-11-14 13:10] LABS: IMMUNOGLOBULIN E 71 IU/mL (6-495)
== END | disposition home or self-care (01) ==
LOC: D.RT 07:31
PROVIDERS: ATTEND Internal Medicine Pulmonary Disease
DX: J44.9 Chronic obstructive pulmonary disease, unspecified (principal)

== ENCOUNTER → 2019-08-06 08:50 | Outpatient (CLI) | payer MEDICARE, OTHER ==
[2018-01-18 08:04] VITALS: BMI 26.6
== END | disposition home or self-care (01) ==
LOC: D.HCCARDIO 08:50
PROVIDERS: ATTEND Internal Medicine Cardiovascular Disease
DX: I25.10 Atherosclerotic heart disease of native coronary artery without angina pectoris (principal)

== ENCOUNTER 2019-08-21 10:47 | Outpatient (CLI) | payer MEDICARE, OTHER ==
[~2019-08-21] VITALS: Ht 172.7 cm; Wt 81.4 kg
--- NOTE | ~2019-08-21 | HEMODYNAMI ---
PATIENT:RENAE LEMONS MEDICAL RECORD: [id number] : 45 LOCATION:DDonnaCAT ADMISSION DATE: 08/21/19 Generatedon:08/21/201913:58 Patient name: RENAE LEMONS Patient #: [id number] SSN: [id number] : 1945 Date of study: 08/21/2019 Page: Of Hemodynamic Procedure Report Patient Data Patient Demographics Procedure consent was obtained First Name: RENAE Gender: Male Last Name: CRISTO : 1945 [facility] Initial: C Age: 74 year(s) Patient #: [id number] Race: SSN: [id number] Additional ID: [id number] Contact details [address]: [address] [place] [address] State: [place] City: [place] Zip code: [address] Past Medical History Allergies Allergen Reaction Date Comments Reported Other allergy 05/16/2016 Sulfa, Doxycyline, Steroids Other allergy 08/15/2016 doxycycline, medrol Other allergy 09/17/2017 doxycycline,medrol Other allergy 08/21/2019 DOXYCYCLINE, MEDROL Admission Admission Data Admission Date: 08/21/2019 Admission Time: 10:47 Arrival Date: 08/21/2019 Arrival Time: 0:00 Height (in.): 68.11 BSA: 1.95 (m2) Height (cm.): 173 BMI: 27.06 (kg/m2) Weight (lbs.): 178.58 Weight (kg.): 81 Lab Results Lab Result Date: 08/21/2019 Lab Result Time: 0:00 Biochemistry Name Units Result Min Max BUN mg/dl 15 --(--*-)-- 7 18 Creatinine mg/dl 1.2 --(---*)-- 0.6 1.3 eGFR ml/min 63 *-(----)-- 90 120 NONAFRICAN CBC Name Units Result Min Max Hemoglobin g/dl 15 --(-*--)-- 13.5 17.5 Procedure Procedure Types Cath Procedure Diagnostic Procedure [facility] w/Coronaries Sedation Charges Moderate Sedation up to 15 minutes Procedure Description Procedure Date Procedure Date: 08/21/2019 Procedure Start Time: 13:44 Procedure End Time: 13:55 Procedure Staff Name Function Vasquez Luo MD Performing Physician Bárbara Sanches RT Monitor Analy Zurita RT Scrub Deanne Rizzo RN Nurse Procedure Data Cath Procedure Fluoroscopy Diagnostic fluoroscopy Total fluoroscopy Time: 1.3 time: 1.3 min min Diagnostic fluoroscopy Total fluoroscopy dose: 399 dose: 399 mGy mGy Contrast Material Contrast Material Type Amount (ml) Isovue 300 52 Entry Location Entry Primary Successful Side Size Upsize Upsize Entry Closure Succes sful Closure Location (Fr) 1 (Fr) 2 (Fr) Remarks Device Remarks Femoral Right 5 Fr Exoseal artery Estimated blood loss: 10 ml Diagnostic catheters Device Type Used For End Catheter Placement MULTIPACK JL 4.0 5Fr Procedure catheter MULTIPACK 3DRC 5Fr Procedure catheter MULTIPACK Pigtail 5 Fr Ventriculography catheter Procedure Complications No complications Procedure Medications Medication Administration Route Dosage 0.9% NaCl I.V. 100 ml/hr Oxygen etCO2 Nasal cannula 2 l/min Lidocaine 2% added to field 20 Heparin Flush Bag added to field 2 bags (1000units/500ml NS) Versed I.V. 2 mg Fentanyl I.V. 50 mcg Hemodynamics Rest BSA: 1.95 (m2) HGB: 15 (g/dl) O2 Consumption: Estimated: 217.09 (ml/min) O2 Cons umption indexed: Estimated:111.33 (ml/min/m) Heart Rate: 60 (bpm) Pressure Samples Time Site Value (mmHg) Purpose Heart Use Rate(bpm) 13:50 LV 110/11,14 Snapshot 60 13:50 AO 114/66(90) Pullback 60 13:50 LV 102/17,24 Pullback 60 Gradients Valve Time Site 1 Site 2 Mean SEP/DFP Peak To Heart Use (mmHg) (sec/min) Peak Rate (mmHg) (bpm) Aortic 13:50 LV AO 0 60 102/17,24 114/66(90) Calculations Valve P-P Mean Valve Index Valve Source Name Gradient Area Flow (cm2) Aortic 0 0 Snapshots Pre Cath Intra NCS Post Cath Vital Signs Time Heart Resp SPO2 etCO2 NIBP (mmHg) Rhythm Pain Sedation Rate (ipm) (%) (mmHg) Status Level (bpm) 13:28:19 61 16 99 31.4 136/76(100) Paced 0 (11) 10(A) , No pain 13:32:33 59 10 89 21.7 107/71(87) Paced 0 (11) 10(A) , No pain 13:37:16 60 15 99 37.4 130/75(91) Paced 0 (11) 10(A) , No pain 13:41:30 60 15 98 36.7 119/74(91) Paced 0 (11) 10(A) , No pain 13:45:38 60 16 98 31.4 115/79(90) Paced 0 (11) 9(A) , No pain 13:49:50 60 10 99 28.4 125/58(84) Paced 0 (11) 10(A) , No pain 13:53:52 59 16 99 35.1 111/74(93) Paced 0 (11) 10(A) , No pain Medications Time Medication Route Dose Verified Delivered Reason Notes Eff ectiveness by by 13:27:21 0.9% NaCl I.V. 100 Vasquez Deanne used for ml/hr [place] Matthias procedure MD CHOWDHURY 13:27:27 Oxygen etCO2 2 Vasquez Deanne used for Nasal l/min [place] Matthias procedure cannula MD CHOWDHURY 13:27:32 Lidocaine 2% added 20ml Vasquez Pattenory for local to vial [facility] anesthetic field MD ADDISON 13:27:35 Heparin Flush added 2 Vasquez Vasquez used for Bag to bags [facility] procedure (1000units/500ml field MD ADDISON NS) 13:42:44 Versed I.V. 2 mg Vasquez Deanne for ValerioLiam Rizzo sedation RN 13:42:53 Fentanyl I.V. 50 Vasquez Deanne for mcg [facility] Liam Rizzo sedation accounting recruiter Log Time Note 13:13:42 Procedure Status Elective Heart Cath (OP). 13:13:46 Bárbara Sanches RT(R) sent for patient. Start room use. 13:13:48 Time tracking: Regular hours (M-F 7:00 - 5:00) 13:13:55 Plan of Care:Hemodynamics will remain stable., Cardiac rhythm will remain stable., Comfort level will be maintained., Respiratory function will remain adequate., Patient/ family verbilizes understanding of procedure., Procedure tolerated without complication., Recovers from procedure without complications.. 13:17:58 Informed consent obtained and on chart 13:18:05 Arrival Date: 08/21/2019 12:00:00 AM 13:18:15 Patient Height : 68.11 inches 13:18:23 Patient Weight : 178.58 lbs 13:18:40 Patient received from Pre/Post Procedure Room to [facility] 2 Alert and oriented. Tansferred to table in Supine position. 13:18:41 Warm blankets applied, and aayush hugger turned on for patient comfort. 13:18:42 Correct patient and procedure confirmed by team. 13:18:43 ECG and BP/O2 sat monitors applied to patient. 13:27:12 Vital chart was started 13:27:21 0.9% NaCl 100 ml/hr I.V. was administered by Deanne Rizzo RN; used for procedure; Verbal order read back and verified. 13:27:27 Oxygen 2 l/min etCO2 Nasal cannula was administered by Deanne Rizzo RN; used for procedure; Verbal order read back and verified. 13:27:32 Lidocaine 2% 20ml vial added to field was administered by Vasquez Luo MD; for local anesthetic; Verbal order read back and verified. 13:27:35 Heparin Flush Bag (1000units/500ml NS) 2 bags added to field was administered by Vasquez Luo MD; used for procedure; Verbal order read back and verified. 13:31:22 Lab Result : eGFR NONAFRICAN 63 ml/min 13:31:22 Lab Result : Hemoglobin 15 g/dl 13:31:22 Lab Result : BUN 15 mg/dl 13:31:22 Lab Result : Creatinine 1.2 mg/dl 13:34:00 Procedure type changed to Cath procedure, Diagnostic procedure, LHC, LHC w/Coronaries, Sedation Charges, Moderate Sedation up to 15 minutes 13:34:21 Baseline sample Acquired. 13:34:31 Baseline sample Acquired. 13:34:36 Full Disclosure recording started 13:35:20 H&P Date Dictated: 08/11/2019 Within 30 days and on chart., H&P Addendum completed by physician on day of procedure. (MUST COMPLETE FOR ALL OUTPATIENTS). 13:35:22 Pre-procedure instructions explained to patient. 13:35:25 Family in patients room. 13:35:27 Patient NPO since Midnight. 13:35:52 Patient allergic to Other allergyDOXYCYCLINE, MEDROL 13:35:55 Is the patient allergic to Iodine/contrast media? No. 13:35:56 Was the patient premedicated? Yes 13:35:57 Is patient on blood thinner?No 13:35:59 Patient diabetic? No. 13:36:04 Snore? Yes 13:36:05 Sleep apnea? Yes 13:36:09 Airway obstruction? Yes COPD 13:36:12 Dentures? Unknown ? 13:36:17 Patient pain scale 0/10 ?. 13:36:23 IV patent on arrival in left forearm with 0.9% NaCl at O. 13:36:28 Lab results completed and on chart. 13:36:58 Stress Test: yes; abnormal UK 13:37:03 Right groin area was prepped with chlora-prep and draped in sterile fashion 13:37:04 Alarms reviewed by R. N. 13:37:04 Sharps counted by scrub and verified by R.N. 13:37:05 Physician paged 13:41:45 Physician arrived 13:41:46 --------ALL STOP TIME OUT------ 13:41:47 Final Timeout: patient, procedure, and site verified with staff and physician. All members of the team are in agreement. 13:41:51 Right groin site verified by team. 13:41:56 Fire Safety Assessment: A--An alcohol-based skin anteseptic being used preoperatively., C--Open oxygen or nitrous oxide is being used., D--An ESU, laser, or fiber-optic light is being used. 13:42:44 Versed 2 mg I.V. was administered by Deanne Rizzo RN; for sedation; Verbal order read back and verified. 13:42:53 Fentanyl 50 mcg I.V. was administered by Deanne Rizzo RN; for sedation; Verbal order read back and verified. 13:43:33 Physical assessment completed. ASA score P 2 - A patient with mild systemic disease as per Vasquez Luo MD. 13:43:39 2) 60-89 Mildly reduced kidney function, and other findings (as for stage 1) point to kidney disease. 13:43:45 Maximum allowable contrast dose (3.7 X eGFR X 0.75)175 ml. 13:43:49 Sedation plan: IV Moderate Sedation Medication:Versed, Fentanyl 13:44:11 Use device set Femoral Dx 13:44:14 Procedure started. 13:44:22 ACIST Syringe (94377) opened to sterile field. 13:44:22 Bag Decanter (2002S) opened to sterile field. 13:44:23 Medline Cath Pack ([id number]) opened to sterile field. 13:44:24 ACIST Hand Control (73005) opened to sterile field. 13:44:24 ACIST Manifold (42630) opened to sterile field. 13:44:25 DIAGNOSTIC Multipack 5Fr catheter set (GG9380) opened to sterile field. 13:44:26 Tegaderm 4 x 4 (1626W) opened to sterile field. 13:44:28 SHEATH 5FR Austin (JLR526) opened to sterile field. 13:44:28 EMERALD Guide Wire (823-231) opened to sterile field. 13:44:35 Local anesthetic to right femoral artery with Lidocaine 2% by Vasquez Luo MD.INITIAL ACCESS ONLY 13:44:45 A 5 Fr sheath was inserted into the Right Femoral artery 13:45:25 A MULTIPACK JL 4.0 5Fr catheter was advanced over the wire and used for Procedure. 13:45:46 LCA angiography performed. 13:48:06 A MULTIPACK 3DRC 5Fr catheter was advanced over the wire and used for Procedure. 13:48:46 RCA angiography performed. 13:50:13 A MULTIPACK Pigtail 5 Fr catheter was advanced over the wire and used for Ventriculography. 13:50:22 LV gram done using HAIRSTON 13:50:28 EF : 55 % 13:50:30 Catheter removed. 13:50:36 EXOSEAL 5Fr (EX500) opened to sterile field. 13:50:59 Sheath removed intact; hemostasis achieved with Exoseal to the Right Femoral artery. 13:51:02 Procedure ended.(Physican Out) 13:51:25 Fluoroscopy time 01.30 minutes. 13:51:38 Fluoroscopy dose: 399 mGy 13:51:38 Flurop Dose total: 399 13:51:44 Dose Area Product 16255 mGy/cm. 13:52:49 Contrast amount:Isovue 300 52ml. 13:52:59 Maximum allowable dose exceeded? No. 13:53:00 Sharps counted by scrub and verified by R.N. 13:53:03 Insertion/operative site no bleeding no hematoma. 13:53:07 Post-op/insertion site Right Femoral artery dressed using a 4 x 4 and Tegaderm. 13:53:09 Post Procedure Pulses reassessed and unchanged 13:54:06 Post-procedure physical assessment completed. ASA score P 2 - A patient with mild systemic disease as per Vasquez Luo MD. 13:54:09 Post procedure rhythm: unchanged. 13:54:12 Estimated blood loss: 10 ml 13:54:14 Post procedure instruction explained to patient.Patient verbalizes understanding. 13:54:48 Procedure and supply charges have been captured, reviewed, submitted and are correct. 13:55:03 Procedure Complication : No complications 13:55:06 Vital chart was stopped 13:55:10 [facility] Findings: mild to moderate CAD (<70%) 13:55:22 See physician's report for complete and final results. 13:55:24 Report given to Pre/Post Procedure Room. 13:55:40 Patient transfered to Pre/Post Procedure Room with Stretcher. 13:55:42 Procedure ended. 13:55:42 Full Disclosure recording stopped Device Usage Item Name Manufacture Quantity Catalog Hospital Part Current Minimal L ot# / Number Charge Number Stock Stock Serial# Code ACIST Acist 1 97680 [id number] 946921 176855 20 Syringe Medical (59845) Systems Inc Bag Microtek 1 2001S 362462 35040 290297 5 Decanter Medical Inc. () Medline Medline 1 [id number] 755298 61797 235329 5 Cath Pack ([id number]) ACIST Hand Acist 1 72501 243610 197675 529762 5 Control Medical (20996) Systems Inc ACIST Acist 1 76070 425563 707455 262694 5 Manifold Medical (44202) Systems Inc DIAGNOSTIC Cardinal 1 SE8977 623255 28086 119674 30 [facility] 5Fr catheter set (IS2475) Tegaderm 4 3M 1 1626W 019824 273110 300396 5 x 4 (1626W) SHEATH 5FR Terumo 1 HCF236 565064 651184 750882 5 Austin (EOH471) EMERALD Cardinal 1 970-244 109680 460500 391979 5 Guide Wire Health (029-964) MULTIPACK Cardinal 1 956741 5 JL 4.0 5Fr Health catheter MULTIPACK Cardinal 1 847288 5 3DRC 5Fr Health catheter MULTIPACK Cardinal 1 268414 5 Pigtail 5 Health Fr catheter EXOSEAL 5Fr Cardinal 1 EX500 586993 556278 402860 10 (EX500) Health Signature Audit [place] Stage Time Signature Unsigned Intra-Procedure 08/21/2019 Bárbara Sanches 1:55:57 PM RT(R); Deanne Rizzo RN; Vasquez Luo MD Signatures Performing Physician : Signature : Vasquez Luo MD Date : Time : Monitor : Bárbara Sanches Signature : RT Date : Time : Nurse : Deanne Rizzo RN Signature : Date : Time : [facility] [address] [place] [address]
[2019-08-21] MEDS ORDERED: CARDIZEM120 MG PO (11:04)
[2019-08-21] MEDS ORDERED: SINGULAIR10 MG PO (11:05)
[2019-08-21] MEDS ORDERED: SUMATRIPTAN SUC25 MG PO (11:06)
[2019-08-21] MEDS ORDERED: FISH OIL 1,0001 CA1 PO (11:07)
[2019-08-21 11:12] VITALS: BP 133/76; Ht 172.7 cm; Wt 81.4 kg
[2019-08-21 11:27] LABS: BASOPHILS 0.3 % (0-2); EOSINOPHILS 2.1 % (0-7); HEMATOCRIT 44.6 % (42.0-54.0); IMMATURE GRANULOCYTES 0.3 % (0-5); LYMPHOCYTES 23.2 % (15-50); MCH 29.6 pg (26.0-34.0); MCHC 33.6 g/dL (31.0-37.0); MCV 88.1 fL (80.0-100.0); MEAN PLATELET VOLUME 9.2 fL (7.4-10.4); MONOCYTES 11.5 % (2-11); NEUTROPHILS 62.6 % (40-80); PLATELET COUNT 254 10x3/uL (130-400); RBC 5.06 10x6/uL (4.20-6.10); RDW 13.1 % (11.5-14.5); WBC 7.5 10x3/uL (4.8-10.8)
[2019-08-21 11:44] LABS: ANION GAP 9.2 mmol/L (8-16); CALCIUM 9.3 mg/dL (8.5-10.1); CARBON DIOXIDE 30.6 mmol/L (21.0-32.0); CHOL - HDL RATIO 5.9 ratio (2.3-4.9); CREATININE - SERUM 1.2 mg/dL (0.6-1.3); LDL-HDL RATIO 4.1 ratio (1.5-3.5); POTASSIUM - SERUM 3.8 mmol/L (3.5-5.1)
--- NOTE | 2019-08-21 14:11 | NUR ---
PT ARRIVED BY STRETCHER. PLACED ON MONITORS. ASSESSMENT COMPLETED. VSS AT THIS TIME. CALL LIGHT WITHIN REACH. FAMILY AT BEDSIDE.
--- NOTE | 2019-08-21 14:25 | NUR ---
PT RESTING COMFORTABLY. VSS. RIGHT GROIN DRESSING C/D/I. NO S/S OF HEMATOMA NOTED. CALL LIGHT WITHIN REACH.
--- NOTE | 2019-08-21 15:00 | NUR ---
RIGHT GROIN DRESSING C/D/I. NO S/S OF HEMATOMA NOTED. CALL LIGHT WITHIN REACH. VSS. HEAD OF BED INC TO 30 DEGREES. SET UP WITH SANDWICH TRAY AND DRINK. DENIES NAUSEA/PAIN AT THIS TIME.
--- NOTE | 2019-08-21 15:30 | NUR ---
RIGHT GROIN DRESSING C/D/I. NO S/S OF HEMATOMA NOTED. CALL LIGHT WITHIN REACH. VSS AT THIS TIME. PIV D/C'D WITH CATH TIP INTACT. TOLERATED WELL. PT INSTRUCTED TO GET UP AND DRESSED AT THIS TIME. AT BEDSIDE TO ASSIST.
--- NOTE | 2019-08-21 15:44 | NUR ---
PT AMBULATED TO RESTROOM. VOIDED WITHOUT DIFFICULTY.
--- NOTE | 2019-08-21 15:55 | NUR ---
DISCUSSED DISCHARGE INSTRUCTIONS WITH PT. HE VOICED UNDERSTANDING. RIGHT GROIN DRESSING C/D/I. NO S/S OF HEMATOMA NOTED.
--- NOTE | 2019-08-21 16:00 | NUR ---
PT TAKEN DOWN TO VEHICLE BY WHEELCHAIR. NO S/S OF DISTRESS NOTED. ALL BELONGINGS AND PAPERWORK IN HAND.
--- NOTE | 2019-08-22 12:12 | OP ---
PATIENT NAME: RENAE LEMONS MEDICAL RECORD: [id number] :45 LOCATION:D.CAT ADMISSION DATE: SURGEON: ELENA MATTHEW MD DATE OF OPERATION: 08/21/2019 PROCEDURE: Left heart catheterization, selective coronary angiography, right femoral artery approach. CATHETERS: A 5-Eritrean sheath, 5/4 left and right [place], 5/4 pig. The procedure was well tolerated. The patient returned to the castellanos. Sheath removed. ExoSeal device placed. FINDINGS: Left ventriculography in 30-degree HAIRSTON view: Normal wall motion and normal systolic function. CORONARY ANATOMY: LEFT MAIN: Left main is free of disease. LAD: Free of disease in the diagonal system. CIRCUMFLEX: Has a previously placed stent and is widely patent. No evidence of restenosis. Free of disease. RIGHT CORONARY ARTERY: Dominant artery, gives rise to PDA, free of disease. IMPRESSION: Normal left ventricular systolic function, normal coronary anatomy. TRANSINT:[id number] Voice Confirmation ID: [id number] DOCUMENT ID: [id number] ELENA MATTHEW MD at 1212 CC: [id number] DICTATION DATE: 08/21/19 1356 SHERIFF'S SERGEANT: 08/21/19 2155 DEP CLI 08/21/19 [address] [place] [address]
== END 2019-08-21 16:00 | disposition home or self-care (01) ==
LOC: D.CATH 10:47
PROVIDERS: ATTEND Internal Medicine Interventional Cardiology
DX: I10 Essential (primary) hypertension (principal); I48.91 Unspecified atrial fibrillation; I34.0 Nonrheumatic mitral (valve) insufficiency; I48.0 Paroxysmal atrial fibrillation; I25.10 Atherosclerotic heart disease of native coronary artery without angina pectoris; Z95.0 Presence of cardiac pacemaker; K21.9 Gastro-esophageal reflux disease without esophagitis; E78.5 Hyperlipidemia, unspecified

== ENCOUNTER → 2019-11-21 10:57 | Outpatient (CLI) | payer MEDICARE, OTHER ==
[2019-08-21 11:12] VITALS: BMI 27.2
[~2019-11-21 10:57] MED LIST changes: +CARDIZEM120 MG PO; +FISH OIL 1,0001 CA1 PO; +SINGULAIR10 MG PO; +SUMATRIPTAN SUC25 MG PO
== END | disposition home or self-care (01) ==
LOC: D.LAB 10:57
PROVIDERS: ATTEND Internal Medicine Pulmonary Disease
DX: J44.9 Chronic obstructive pulmonary disease, unspecified (principal)

== ENCOUNTER → 2019-11-25 12:35 | Outpatient (CLI) | payer MEDICARE, OTHER ==
[2019-08-21 11:12] VITALS: BMI 27.2
== END | disposition home or self-care (01) ==
LOC: D.RT 11-14 09:00
PROVIDERS: ATTEND Internal Medicine Pulmonary Disease
DX: J44.9 Chronic obstructive pulmonary disease, unspecified (principal); R91.8 Other nonspecific abnormal finding of lung field

== ENCOUNTER → 2020-07-21 12:57 | Outpatient (CLI) | payer MEDICARE, OTHER ==
[2019-08-21 11:12] VITALS: BMI 27.2
== END | disposition home or self-care (01) ==
LOC: D.CT 12:57
PROVIDERS: ATTEND Internal Medicine Pulmonary Disease
DX: J47.9 Bronchiectasis, uncomplicated (principal); J32.9 Chronic sinusitis, unspecified

== ENCOUNTER 2020-09-06 07:16 | Day surgery (SDC) | payer MEDICARE, OTHER ==
[~2020-09-06] VITALS: Ht 172.7 cm; Wt 79.4 kg
--- NOTE | ~2020-09-06 | OP ---
PATIENT NAME: RENAE LEMONS MEDICAL RECORD: [id number] :45 LOCATION:DDonnaOPS ADMISSION DATE: SURGEON: JARAD VALLEJO MD DATE OF OPERATION: 09/06/2020 PREOPERATIVE DIAGNOSES: Chronic sinusitis, nasal obstruction. POSTOPERATIVE DIAGNOSES: Chronic sinusitis, nasal obstruction. PROCEDURE: Left frontal sinusotomy, left anterior ethmoidectomy and cautery of bilateral inferior turbinates. SURGEON: Jarad Vallejo MD ANESTHESIA: General orotracheal. BLOOD LOSS: 1 mL. SPECIMENS: Cultures from the left frontal sinus. PACKING: None. COMPLICATIONS: None. DISPOSITION: Recovery, stable. DESCRIPTION OF PROCEDURE: He was brought to the operating room and placed in supine position, sedated and intubated by anesthesia. The table was turned 90 degrees. Head drape was applied. He was positioned for sinus surgery. Using a headlight and nasal speculum, the nose was examined. The left uncinate, left middle turbinate, ethmoid and bulla were injected with a total of less than 1 mL of 1% lidocaine with 1:100,000 epinephrine. Three Afrin pledgets were placed in the left side, one in the right side. He was positioned, prepped and draped in the usual fashion for sinus surgery. Then, all the Afrin pledgets were removed. The nose was examined using 0-degree scope. The right side was really normal. Turbinate was little bit large. Nasopharynx was normal. Nasal vault, inferior and middle turbinate and meatus were normal. The left side looked good as well. Turbinate may be a little bit larger, but the middle meatus, middle turbinate everything looked normal. No drainage, no masses, no polyps. Nasopharynx looks good as well. Then, using a long curved small olive tip suction, I entered the frontal sinus duct, got up into the frontal sinus very easily, attached a Luki trap that was without suction and attached the Luki trap and suctioned a little bit of fluid, a little bit of bloody material suctioned out and then put a couple mL of water in the sinus, suctioned that out into the Luki trap and sent that for cultures and specimen. I then got a larger curved olive tip suction, again easily inserted into that frontal sinus duct, suctioned it out, rinsed it out repeatedly with a 30 mL syringe over and over and over; really what was returning was fairly clear not much solid material suctioned easily. There did not seem to be any thick material or anything in the sinus blocking up the suction, easy to manipulate in the sinus and clean that out. Once that was done, the microdebrider was used to take down the ethmoid bulla and the anterior ethmoids, very clean, almost no visible edema. No purulence. Looked really nice. No bleeding. Opened that up and cleaned it up really nicely and then irrigated that frontal sinus again and then put mupirocin ointment in the frontal duct and the anterior ethmoid cavity with a syringe and a large suction, OPERATIVE REPORT [id number] RENAE LEMONS suctioned out the nasopharynx. I then used suction cautery, cauterized some of the more edematous portions of the inferior turbinates and outfracture a little bit. There was really no bleeding, it was completely clean and dry. No packing was used. He was awakened, extubated, and transported to recovery in good condition. No complications. TRANSINT:[id number] Voice Confirmation ID: [id number] DOCUMENT ID: [id number] JARAD VALLEJO MD CC: [id number] DICTATION DATE: 09/06/20 1155 ASSOCIATE PROFESSOR COMPUTER SCIENCE: 09/06/20 1340 REG [facility] [address] [id number]
[2020-09-06 07:41] LABS: ANION GAP 10.1 mmol/L (8-16); CALCIUM 9.2 mg/dL (8.5-10.1); CARBON DIOXIDE 30.7 mmol/L (21.0-32.0); CREATININE - SERUM 1.3 mg/dL (0.6-1.3); POTASSIUM - SERUM 3.8 mmol/L (3.5-5.1)
[2020-09-06 07:51] LABS: BASOPHILS 0.8 % (0-2); EOSINOPHILS 4.5 % (0-7); HEMATOCRIT 42.1 % (42.0-54.0); HEMOGLOBIN 14.1 g/dL (13.5-17.5); MCHC 33.4 g/dL (31.0-37.0); MEAN PLATELET VOLUME 7.2 fL (7.4-10.4); MONOCYTES 12.6 % (2-11); NEUTROPHILS 58.1 % (40-80); PLATELET COUNT 274 10x3/uL (130-400); RBC 4.84 10x6/uL (4.20-6.10); RDW 13.3 % (11.5-14.5); WBC 6.4 10x3/uL (4.8-10.8)
[2020-09-06 08:38] VITALS: BP 119/74; BMI 26.6
--- NOTE | 2020-09-06 10:35 | HP ---
PATIENT: RENAE PALACIOS MEDICAL RECORD: [id number] ACCOUNT: [id number] LOCATION:FLORY : 45 ADMISSION DATE: 09/06/20 PCP: MARCO ANTONIO HERNANDEZ DO HISTORY AND PHYSICAL EXAMINATION HISTORY OF PRESENT ILLNESS: Mr. Palacios is a 75-year-old male with problems with headaches and sinus drainage. He has been admitted for sinus surgery. PAST MEDICAL HISTORY: Includes hypertension, peptic ulcer disease, pacemaker, and hypothyroidism. PAST SURGICAL HISTORY: Includes cholecystectomy, thyroidectomy, and pacemaker. CURRENT MEDICATIONS: Include Omeprazole, diltiazem, propafenone, and triamterene. ALLERGIES: ASPIRIN, WHICH IS ON HOLD. METOPROLOL, SINGULAIR, SUMATRIPTAN, AND CARAFATE. PHYSICAL EXAMINATION: GENERAL: Normal. FACE: Normal. EYES: Sclerae and conjunctivae are normal. EARS: Canals and TMs are normal. NOSE: No mass, polyps, or drainage. ORAL CAVITY AND OROPHARYNX: Normal. NECK: Normal. NEUROLOGIC: Cranial nerves are normal. CHEST: Clear bilaterally. CARDIOVASCULAR: Regular rate and rhythm, no murmur. EXTREMITIES: No clubbing, cyanosis, or edema. CT shows the patient had opacification in the left frontal sinus and anterior ethmoid disease on the left side. Headaches somewhat correlate with that, but he has a long history of migraines. We talked about that. It is hard to say for certain his headaches might be arising from the sinus disease and really has no other sinusitis symptoms other than some drainage, but this is not really necessarily just left-sided. IMPRESSION: Chronic left frontal and anterior ethmoid sinusitis. PLAN: Left frontal sinusotomy, anterior ethmoidectomy, and cautery of the inferior turbinates. TRANSINT:[id number] Voice Confirmation ID: [id number] DOCUMENT ID: [id number] HISTORY AND PHYSICAL [id number] RENAE PALACIOS ERIC MD at 1035 CC: [id number] DICTATION DATE: 08/31/20 1525 CERTIFIED BENCH JEWELER TECHNICIAN: 08/31/[address] [facility] [address] [place] [address]
--- NOTE | 2020-09-06 13:31 | NUR ---
1331 STATES CHEST DISCOMFORT HAS "EASED UP QUITE A BIT", RATED 1 OR 2/10. STATES NAUSEA IS BETTER
--- NOTE | 2020-09-06 13:39 | NUR ---
1339 STATES "IT'S COMING BACK, IT WENT AWAY BUT IT'S COMING BACK" 2ND NITRO GIVEN.
--- NOTE | 2020-09-06 14:00 | NUR ---
2100 DR. LAIRD PAGED TO INFORM OF CONSULT. PT. STATES HIS CHEST PAIN HAS LEFT CURRENTLY AFTER THE NITROS.
--- NOTE | 2020-09-06 14:08 | NUR ---
6280 DR. LAIRD REPAGED.
--- NOTE | 2020-09-06 14:11 | NUR ---
1415 SAMMI RETURNED CALL AND WILL COME PT.
--- NOTE | 2020-09-06 14:41 | NUR ---
144 SAMMI BROWNE HERE INTERVIEWING PT.
--- NOTE | 2020-09-06 15:00 | NUR ---
1450 DR. CHRISTIANE LUTHER ON PT. [address] [facility] [phone] FOR ISOSORBIDE AND NITRO. PT. REPORTS NO CHEST PAIN.
[2020-09-06 15:11] VITALS: Ht 172.7 cm; Wt 79.4 kg
--- NOTE | 2020-09-06 15:48 | NUR ---
1535 PT. DENIES PAIN, IS DRESSED. DC INSTS. 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
== END 2020-09-06 15:40 | disposition home or self-care (01) ==
LOC: D.OPS 07:16
PROVIDERS: Anesthesiology; ATTEND Otolaryngology
DX: J32.9 Chronic sinusitis, unspecified (principal); J34.89 Other specified disorders of nose and nasal sinuses; I10 Essential (primary) hypertension; R51.9 Headache, unspecified; E03.9 Hypothyroidism, unspecified; Z95.0 Presence of cardiac pacemaker

== ENCOUNTER → 2020-09-20 12:22 | Outpatient (CLI) | payer MEDICARE, OTHER ==
[2020-09-06 15:11] VITALS: BMI 26.6
== END | disposition home or self-care (01) ==
LOC: D.US 12:22
PROVIDERS: ATTEND Internal Medicine Cardiovascular Disease
DX: R53.1 Weakness (principal); I73.9 Peripheral vascular disease, unspecified